=== PATIENT | male | born 1950 | race African-American/Black ===

== ENCOUNTER → 2017-03-14 | Outpatient (CLI) | payer MEDICARE ==
[2017-03-14 10:52] LABS: ABSOLUTE EOSINOPHILS # (AUTO) 0.1 10^3/uL (0.0-0.6); ABSOLUTE LYMPHOCYTES (AUTO) 1.7 10^3/uL (0.5-4.7); ABSOLUTE MONOCYTES (AUTO) 0.3 10^3/uL (0.1-1.4); ABSOLUTE NEUT (AUTO) 2.8 10^3/uL (1.7-8.2); BASOPHILS % (AUTO) 0.6 % (0-2); HEMATOCRIT 40.1 % (37.9-51.0); HEMOGLOBIN 12.8 g/dL (13.5-17.0); HGB HCT DIFFERENCE -1.7; LYMPHOCYTES % (AUTO) 34.7 % (13-45); MEAN CORPUSCULAR HEMOGLOBIN 31.1 pg (27.0-33.4); MEAN CORPUSCULAR HGB CONC 31.8 g/dL (32.0-36.0); MEAN CORPUSCULAR VOLUME 98 fl (80-97); MONOCYTES % (AUTO) 6.6 % (3-13); RED CELL DISTRIBUTION WIDTH 19.3 % (11.5-14.0); SEGMENTED NEUTROPHILS % (AUTO) 56.1 % (42-78)
== END ==
LOC: OD 09:24
PROVIDERS: ATTEND Radiology Radiation Oncology
DX: C32.1 Malignant neoplasm of supraglottis (principal); C77.0 Secondary and unspecified malignant neoplasm of lymph nodes of head, face and neck
CPT/HCPCS: 36415; 85025

== ENCOUNTER → 2017-03-25 | Outpatient (CLI) | payer MEDICARE ==
--- NOTE | 2017-03-26 17:06 | RADIOLOGY REPORT (SQ) ---
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 TECHNIQUE: Blood glucose level was verified. Above dose of FDG was injected intravenously. 2-D seg mented attenuation correction images were obtained from the base of the skull to the midthighs. Nonc ontrast CT images were obtained for attenuation correction and fusion with emission images. CT image s were performed without oral or intravenous contrast and are not sensitive for parenchymal lesions. A series of overlapping emission PET images were obtained. Images reviewed and manipulated at [facility] work station by the radiologist. Images stored on PACS. LIMITATIONS: None. FINDINGS: HEAD AND NECK: Patient is post laryngectomy in 2015 and left radical neck dissection at th e end of January 2017. There is soft tissue stranding along the left neck from recent surgery. On axial image 64, a 2.4 x 1.8 cm left supraclavicular lymph node is present with SUV 6.7. On axial image 68, a 1.1 x 1.0 cm lymph node is present, ventral to the medial 3rd of the clavicle. This has SUV 7.1. CHEST: No areas of abnormal metabolic activity in the chest. ABDOMEN AND PELVIS: No areas of abnormal metabolic activity in the abdomen or pelvis. Expected physi ologic activity is present in the genitourinary system and bowel. PROXIMAL LOWER EXTREMITIES: No areas of abnormal metabolic activity in the soft tissues of the lower extremities. BONES: No abnormal metabolic activity in the visualized skeleton. ADDITIONAL CT FINDINGS: Mild coronary artery calcifications. Ascending thoracic aorta 4 cm diameter. 3 to 4 mm intrarenal nonobstructive stone left upper pole kidney. I containing right inguinal fransisco ia. OTHER: There activity 1.9 SUV, aorta blood pool activity 1.4 SUV IMPRESSION: Metabolically active left supraclavicular and paraclavicular lymph nodes. TECHNICAL DOCUMENTATION: JOB ID: [id number]- All Rights Reserved
== END ==
LOC: RAD 21:27
PROVIDERS: ATTEND Radiology Radiation Oncology
DX: C32.1 Malignant neoplasm of supraglottis (principal); C77.0 Secondary and unspecified malignant neoplasm of lymph nodes of head, face and neck
CPT/HCPCS: 78815; A9552

== ENCOUNTER → 2017-05-24 | Outpatient (CLI) | payer MEDICARE ==
--- NOTE | 2017-05-24 17:49 | RADIOLOGY REPORT (SQ) ---
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 Reconstructed coronal and sagittal MPR images reviewed. All images stored on PACS. All CT scanners at this facility use dose modulation, iterative reconstruction, and/or weight based d osing when appropriate to reduce radiation dose to as low as reasonably achievable (ALARA). [facility]: Dose Right [facility]: CareDose [facility]: Dose Right [facility]: Teradose 4D [facility]: [employer] CONTRAST TYPE AND DOSE: 80 mL Isovue 370- low osmolar. RENAL FUNCTION: Creatinine 0.9 RADIATION DOSE: 15.1 . LIMITATIONS: None. FINDINGS: Patient is post left radical neck dissection and laryngectomy. There is a tracheostomy wi th an esophageal speech device present. There are multiple left next lymph nodes in the supraclavicular region, increased in size and number compared to PET-CT 03/25/2017. Index lymph nodes are as follows: Left supraclavicular 1.7 x 1.5 cm axial image 63 Left supraclavicular 2.8 x 2 cm axial image 80 An enlarged lymph node or tumor deposit is present ventral to the left mid 3rd clavicle on axial imag e 84, 2 x 2 cm in size. High in the left axilla, a 3.2 x 1.8 cm lymph node is present on axial image 93. Other axillary lymp h nodes are present, better demonstrated on the CT chest today. SKULL BASE: Intact. MAJOR SALIVARY GLANDS: No solid or cystic masses. No inflammatory changes. LYMPHADENOPATHY: As above MUCOSAL MASSES OR ASYMMETRY: No mucosal masses or asymmetry. LARYNX/CORDS: Post laryngectomy VASCULAR STRUCTURES: The major vessels are patent. LUNG APICES: Obstructive lung disease in the apices BONES: Intact. THYROID: Normal size. No masses. PARANASAL SINUSES: Clear. OTHER: No other significant finding. IMPRESSION: Increase in pathologic adenopathy in the left paraclavicular and axillary regions compar ed to prior PET-CT 03/25/2017 TECHNICAL DOCUMENTATION: JOB ID: [id number] Quality ID # [id number]: Final reports with documentation of one or more dose reduction techniques (e.g., Au tomated exposure control, adjustment of the mA and/or kV according to patient size, use of iterative reconstruction technique) 2010 [employer]- All Rights Reserved
--- NOTE | 2017-05-24 17:59 | RADIOLOGY REPORT (SQ) ---
EXAM DESCRIPTION: CT CHEST WITH COMPLETED DATE/TIME: 05/24/2017 1:59 pm REASON FOR STUDY: LEFT SUPRACLAVICAL LEFT AXILLARY - VISIBLE MASS/SWELLING C32.1 MALIGNANT NEOPLA SM OF SUPRAGLOTTIS C77.0 SEC AND UNSP MALIG NEOPLASM OF NODES OF HEAD, FACE AND COMPARISON: PET-CT 03/25/2017 CT angio chest 10/09/2009 CT soft tissue neck same day TECHNIQUE: CT scan of the chest performed using helical scanning technique with dynamic intravenous contrast injection. Images reviewed with lung, soft tissue and bone windows. Reconstructed coronal and sagittal MPR images reviewed. All images stored on PACS. All CT scanners at this facility use dose modulation, iterative reconstruction, and/or weight based d osing when appropriate to reduce radiation dose to as low as reasonably achievable (ALARA). [facility]: Dose Right [facility]: CareDose [facility]: Dose Right [facility]: Teradose 4D [facility]: [employer] CONTRAST TYPE AND DOSE: contrast/concentration: Isovue 370.00 mg/ml; Total Contrast Delivered: 80.0 ml; Total Saline Delivered: 40.0 ml RENAL FUNCTION: Creatinine 0.9 RADIATION DOSE: 15 mGy . LIMITATIONS: None. FINDINGS: LUNGS AND PLEURA: No opacities, nodules, masses. No pneumothorax. No effusions. Obstruct ioana lung disease HILAR AND MEDIASTINAL STRUCTURES: No identified masses or abnormal mediastinal nodes. HEART AND VASCULAR STRUCTURES: No aneurysm or dissection. No central pulmonary emboli. No pericardi al effusion. HARDWARE: None in the chest. UPPER ABDOMEN: No significant findings. Limited exam. THYROID AND OTHER SOFT TISSUES: Thyroid unremarkable. Caps multiple enlarged paraclavicular/supracla vicular lymph nodes are present. Index lesions are as follows: 1.7 x 1.4 cm axial image 2 3 x 2 cm axial image 6 2 x 2 cm axial image 7 Multiple enlarged axillary lymph nodes are present as follows: High left axilla 3 x 2 cm axial image 12, inferior left axilla 3.5 x 3 cm axial image 25 Inferior left axilla/deep to the latissimus muscle 2.4 x 2 cm axial image 31 BONES: No significant finding. OTHER: No other significant finding. IMPRESSION: Recurrent malignancy in the supraclavicular/ paraclavicular region on the left, and in t he left axilla. Disease has progressed since prior PET-CT 03/25/2017 TECHNICAL DOCUMENTATION: JOB ID: [id number] Quality ID # [id number]: Final reports with documentation of one or more dose reduction techniques (e.g., Au tomated exposure control, adjustment of the mA and/or kV according to patient size, use of iterative reconstruction technique) 2010 [employer]- All Rights Reserved
== END ==
LOC: RAD 12:57
PROVIDERS: ATTEND Radiology Radiation Oncology
DX: C32.1 Malignant neoplasm of supraglottis (principal); C77.0 Secondary and unspecified malignant neoplasm of lymph nodes of head, face and neck
CPT/HCPCS: 70491; 71260; 82565

== ENCOUNTER → 2017-06-17 | Outpatient (CLI) | payer MEDICARE ==
--- NOTE | 2017-06-19 15:10 | RADIOLOGY REPORT (SQ) ---
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 TECHNIQUE: Blood glucose level was verified. Above dose of FDG was injected intravenously. 2-D seg mented attenuation correction images were obtained from the base of the skull to the midthighs. Nonc ontrast CT images were obtained for attenuation correction and fusion with emission images. CT image s were performed without oral or intravenous contrast and are not sensitive for parenchymal lesions. A series of overlapping emission PET images were obtained. Images reviewed and manipulated at [facility] work station by the radiologist. Images stored on PACS. LIMITATIONS: None. FINDINGS: HEAD AND NECK: Post laryngectomy and left neck dissection. No hypermetabolic lesions over the head or neck today. CHEST: There is conglomerate adenopathy in the left supraclavicular region 4.5 x 3.2 cm in size with SUV 11.3. This represents disease progression compared to previous studies. A 3 x 2.1 cm hypermetabolic lymph node is present ventral to the mid 3rd left clavicle, with SUV 6.2 (was 2 x 2 cm in size on 05/24/2017). In the high left axilla, a 4.2 x 3 point cm hypermetabolic lymph node is present with SUV 9.6 (was 3. 2 x 1.8 cm on 05/24/2017). In the lower posterior left axilla, a conglomerate mass of adenopathy is present 5.6 x 7.6 cm in size , with SUV of 9.4 (was 3.5 x 3 cm on 05/24/2017). ABDOMEN AND PELVIS: Along mid descending colon, a 1 cm focus of increased metabolic activity is prese nt, with SUV of 10.6. This could be an inflamed diverticulum. Hypermetabolic polyp could not be exc luded. PROXIMAL LOWER EXTREMITIES: No areas of abnormal metabolic activity in the soft tissues of the lower extremities. BONES: No abnormal metabolic activity in the visualized skeleton. ADDITIONAL CT FINDINGS: Post laryngectomy and left radical neck dissection. The ascending aorta 4 cm in diameter. OTHER: Blood pool background SUV 1.5. Liver background SUV 2.1 IMPRESSION: Progression of disease in the left supraclavicular and paraclavicular region, and left a xilla TECHNICAL DOCUMENTATION: JOB ID: [id number] [employer]- All Rights Reserved
== END ==
LOC: RAD 18:20
PROVIDERS: ATTEND Internal Medicine
DX: C32.0 Malignant neoplasm of glottis (principal)
CPT/HCPCS: 78815; A9552

== ENCOUNTER 2017-06-25 08:13 | Day surgery (SDC) | payer MEDICARE ==
[2017-06-25 08:04] LABS: HEMATOCRIT 36.5 % (37.9-51.0); HEMOGLOBIN 12.2 g/dL (13.5-17.0); HGB HCT DIFFERENCE 0.1; MEAN CORPUSCULAR HEMOGLOBIN 30.2 pg (27.0-33.4); MEAN CORPUSCULAR HGB CONC 33.4 g/dL (32.0-36.0); MEAN CORPUSCULAR VOLUME 90 fl (80-97); RED BLOOD COUNT 4.04 10^6/uL (4.35-5.55); RED CELL DISTRIBUTION WIDTH 15.9 % (11.5-14.0); WHITE BLOOD COUNT 8.1 10^3/uL (4.0-10.5)
--- NOTE | 2017-06-25 08:11 | EKG REPORT ---
SEVERITY:- ABNORMAL ECG - SINUS TACHYCARDIA PROBABLE INFERIOR INFARCT, AGE INDETERMINATE : Confirmed by: Arden Castillo 25-Jun-2017 08:09:12
[~2017-06-25 08:13] MED LIST: CEFAZOLIN 1 GM/D5W RTU 1 GM/50 ML RTUPB IV PRN; DEXTROSE 5%-1/2 NORMAL SALINE 1,000 ML IV PRN
[2017-06-25 08:37] LABS: ANION GAP 16 (5-19); BLOOD UREA NITROGEN 15 mg/dL (7-20); CARBON DIOXIDE 28 mmol/L (22-30); CHLORIDE 99 mmol/L (98-107); CREATININE RESULT 1.07 mg/dL (0.52-1.25); GLUCOSE 124 mg/dL (75-110); POTASSIUM 4.9 mmol/L (3.6-5.0); SODIUM 142.8 mmol/L (137-145)
--- NOTE | 2017-06-25 08:54 | RADIOLOGY REPORT (SQ) ---
EXAM DESCRIPTION: CHEST PA/LATERAL COMPLETED DATE/TIME: 06/25/2017 8:01 am REASON FOR STUDY: PRE-OP COMPARISON: 2016. TECHNIQUE: Frontal and lateral radiographic views of the chest acquired. NUMBER OF VIEWS: Two view. LIMITATIONS: Limited lateral, overlying arm partially obscuring. FINDINGS: LUNGS AND PLEURA: No acute or suspicious opacities. Probable bullous changes with apical pleural thickening/ scar. Stable. MEDIASTINUM AND HILAR STRUCTURES: No masses or contour abnormalities. HEART AND VASCULAR STRUCTURES: Heart normal size. No evidence for failure. BONES: No acute findings. HARDWARE: None in the chest. OTHER: No other significant finding. IMPRESSION: Stable chest. No acute abnormality. TECHNICAL DOCUMENTATION: JOB ID: [id number] [employer]- All Rights Reserved
[2017-06-25 09:02] LABS: CALCIUM 15.6 mg/dL (8.4-10.2)
[2017-06-25] MEDS ORDERED: MIDAZOLAM 2 MG/2 ML INJ ONE (09:47)
[2017-06-25] MEDS ORDERED: LIDOCAINE 0.5% INJ-PF (5 MG/ML) 50 ML SDV ONE (09:47)
[2017-06-25] MEDS ORDERED: FENTANYL CITRATE INJ/PF 100 MCG/2 ML AMPUL ONE (09:47)
[2017-06-25] MEDS ORDERED: BACITRACIN INJ 50,000 UNIT VIAL ONE (09:47)
[2017-06-25] MEDS ORDERED: CEFAZOLIN 1 GM/D5W RTU 1 GM/50 ML RTUPB IV ONE (10:17)
--- NOTE | 2017-06-25 11:30 | PDOC DISCHARGE SUMMARY ---
Discharge Summary (SDC) - Discharge Final Diagnosis: Laryngeal cancer Date of Surgery: 06/25/17 Discharge Date: 06/25/17 Condition: Fair Treatment or Instructions: Discharge home [after recovery per ASU criteria]. Diet , [renal],as tolerated, when fully awake advance as tolerated. Activities within moderation encouraged. Follow up in my office by appointment in about [1 week]. Call for appointment. Leave wounds [covered], [keep clean and dry, until office visit in 1 week]. Hold of on school/work [until evaluation in office]. Meds per med rec. May shower [in 48 hrs], [try to keep operated area as dry as possible]. Referrals: LALY EMANUEL MD [Primary Care Provider] - Discharge Diet: As Tolerated Respiratory Treatments at Home: Deep Breathing/Coughing Discharge Activity: Activity As Tolerated Report the Following to Your Physician Immediately: Shortness of Breath, Unusual Bleeding
--- NOTE | 2017-06-25 11:33 | Operative Report ---
Operative Report DATE OF SURGERY: 06/25/17 PREOPERATIVE DIAGNOSIS: Laryngeal cancer POSTOPERATIVE DIAGNOSIS: Laryngeal cancer OPERATION: 1. Ultrasound evaluation of the right internal jugular vein. 2. Insertion of Port-A-Cath via real-time access in the right internal jugular vein. 3. Angiogram and interpretation. SURGEON: FAVIO FIGUEROA CYTOLOGIST: None ANESTHESIA: LMAC TISSUE REMOVED OR ALTERED: Not applicable. COMPLICATIONS: None ESTIMATED BLOOD LOSS: 5 mL. INTRAOPERATIVE FINDINGS: Of a satisfactory right internal jugular vein to support catheter. Good catheter position with the tip in the superior vena cava. Smooth flow of contrast through the catheter, right atrium and ventricle noted. Easy egress of blood and ingress of heparinized solution. PROCEDURE: After obtaining informed consent, the patient was taken to the [operating room] and positioned supine. The [right] neck and chest were prepared with chlorhexidine and draped out with sterile linen. After the " universal timeout ", in which it was verified that the patient continued to receive antibiotic, the procedure commenced. Draping was complicated by the presence of a permanent tracheostomy. This is really well isolated including the use of Ioban drape. A steriley sheathed ultrasound probe was used to evaluate the [right] internal jugular vein. Local anesthesia was infiltrated adjacent to the probe. Access into the [right] internal jugular vein was obtained using a micropuncture needle, followed by micropuncture wire and then a micropuncture catheter. This was followed by introduction of a 0.035 guidewire the tip of which was placed down into the inferior vena cava . The port sites was marked , locally anesthetized and incision made. Dissection now proceeded to the deep subcutaneous subcutaneous tissues so that a pocket for the port was made. Meticulous hemostasis was secured and the catheter was tunneled between the 2 incisions. Proximally, the catheter was now positioned using a peel-away sheath. Distally the catheter was tailored to an appropriate length and then mated to the port using the contained fixating device. The port was now placed in the pocket and the catheter optimally positioned. The port was accessed with a Diaz needle and an angiogram done under digital subtraction. The findings as dictated. With adequate and satisfactory positioning, both lumens of the chamber were irrigated with heparinized solution. The wounds were now closed using interrupted 3-0 PDS to the subcutaneous tissues and a continuous subcuticular suture of 4-0 Monocryl to the skin. These are reinforced with Steri-Strips over benzoin and then dressings applied. Copies of the dictated operative report for Dr. Favio Sawant MD.
[2017-06-25 12:27] VITALS: BP 133/85
--- NOTE | 2017-06-25 16:12 | RADIOLOGY REPORT (SQ) ---
EXAM DESCRIPTION: PORTACATH INSERTION COMPLETED DATE/TIME: 06/25/2017 1:10 pm REASON FOR STUDY: NEED FOR VASCULAR ACCESS I10 ESSENTIAL (PRIMARY) HYPERTENSION COMPARISON: Chest films 06/25/2017 FLUOROSCOPY TIME: 0.8 minutes 4 series of digital images saved to PACS. TECHNIQUE: Intra-operative images acquired during surgical procedure to evaluate progress. NUMBER OF IMAGES: Cine fluoroscopic images. LIMITATIONS: None. FINDINGS: Intra procedural imaging and fluoro during placement of a right-sided permanent central li ne by Dr. Sawant IMPRESSION: Intra procedural imaging and fluoro COMMENT: Quality ID 145: Final reports for procedures using fluoroscopy that document radiation exp osure indices, or exposure time and number of fluorographic images (if radiation exposure indices are not available) Please consult full operative report of the attending physician for description of the procedure. TECHNICAL DOCUMENTATION: JOB ID: [id number] [employer]- All Rights Reserved
== END 2017-06-25 12:20 | disposition home or self-care (01) ==
LOC: CCL 08:13
PROVIDERS: ATTEND Surgery
PROC: 05HM33Z Insertion of Infusion Device into Right Internal Jugular Vein, Percutaneous Approach (ICD-10-PCS; principal; 2017-06-25)
DX: C32.9 Malignant neoplasm of larynx, unspecified (principal); I10 Essential (primary) hypertension; R59.1 Generalized enlarged lymph nodes; F17.210 Nicotine dependence, cigarettes, uncomplicated; Z79.899 Other long term (current) drug therapy
CPT/HCPCS: 93005; 36415; 85027; 80048; 36561; 76937; 77001; 71020; 93010; C1788; Q9967; J2250; J3490 ×2; J0690; J3010; J1644

== ENCOUNTER 2017-06-27 08:52 | Outpatient (CLI) | payer MEDICARE ==
[~2017-06-27 08:52] MED LIST changes: +ACETAMINOPHEN 325 MG TABLET PO PRN; +CARBOPLATIN IV PRN; -CEFAZOLIN 1 GM/D5W RTU 1 GM/50 ML RTUPB IV PRN; +CETUXIMAB IV PRN; +CONTAINER EMPTY IV PRN; +DENOSUMAB 120 MG in SYRINGE, DISPOSABLE, 1 EACH SUBCUT PRN; -DEXTROSE 5%-1/2 NORMAL SALINE 1,000 ML IV PRN; +DIPHENHYDRAMINE HCL 50 MG/ML VIAL IV PRN; +FAMOTIDINE/PF 20 MG in NORMAL SALINE 50 ML IV PRN; +NORMAL SALINE 250 ML IV PRN; +NORMAL SALINE IV PRN; +ONDANSETRON HCL/PF 16 MG, DEXAMETHASONE SOD PHOSPHATE 10 MG in NORMAL SALINE 50 ML IV PRN; +PACLITAXEL SEMI SYNTHETIC IV PRN
[2017-06-27 10:37] VITALS: BP 158/84
== END 2017-06-27 15:45 | disposition home or self-care (01) ==
LOC: II 08:52 → 5TH 08:57 → II 15:45
PROVIDERS: ATTEND Internal Medicine
PROC: 3E0130M Introduction of Antineoplastic, Monoclonal Antibody, into Subcutaneous Tissue, Percutaneous Approach (ICD-10-PCS; principal; 2017-06-27)
PROC: 3E0430M Introduction of Antineoplastic, Monoclonal Antibody, into Central Vein, Percutaneous Approach (ICD-10-PCS; 2017-06-27)
PROC: 3E04305 Introduction of Other Antineoplastic into Central Vein, Percutaneous Approach (ICD-10-PCS; 2017-06-27)
PROC: 3E043GC Introduction of Other Therapeutic Substance into Central Vein, Percutaneous Approach (ICD-10-PCS; 2017-06-27)
DX: Z51.11 Encounter for antineoplastic chemotherapy (principal); C32.0 Malignant neoplasm of glottis; G89.3 Neoplasm related pain (acute) (chronic); Z90.02 Acquired absence of larynx
CPT/HCPCS: 96413; 96415; 96367; 96372; 96375; A9270 ×2; J1200; J9045; J2405; J7050; J3490; J9267; S0028; J1100; J0897; J9055; 96417

== ENCOUNTER 2017-07-04 08:41 | Outpatient (CLI) | payer MEDICARE ==
[~2017-07-04 08:41] MED LIST changes: -ACETAMINOPHEN 325 MG TABLET PO PRN; -DENOSUMAB 120 MG in SYRINGE, DISPOSABLE, 1 EACH SUBCUT PRN
[2017-07-04 14:06] VITALS: BP 142/68
== END 2017-07-04 15:20 | disposition home or self-care (01) ==
LOC: II 08:41 → 5TH 08:46 → II 15:20
PROVIDERS: ATTEND Internal Medicine
PROC: 3E04305 Introduction of Other Antineoplastic into Central Vein, Percutaneous Approach (ICD-10-PCS; principal; 2017-07-04)
PROC: 3E0430M Introduction of Antineoplastic, Monoclonal Antibody, into Central Vein, Percutaneous Approach (ICD-10-PCS; 2017-07-04)
PROC: 3E043GC Introduction of Other Therapeutic Substance into Central Vein, Percutaneous Approach (ICD-10-PCS; 2017-07-04)
DX: Z51.11 Encounter for antineoplastic chemotherapy (principal); C32.0 Malignant neoplasm of glottis; G89.3 Neoplasm related pain (acute) (chronic)
CPT/HCPCS: 96413; 96415; 96367; 96374; 96417; 96523; J1200; J9045; A9270; J2405; J7050; J9267; S0028; J1100; J9055; 96375; J3490

== ENCOUNTER 2017-07-25 08:52 | Outpatient (CLI) | payer MEDICARE ==
[~2017-07-25 08:52] MED LIST changes: +ACETAMINOPHEN 325 MG TABLET PO PRN; +DENOSUMAB 120 MG in SYRINGE, DISPOSABLE, 1 EACH SUBCUT PRN
[2017-07-25 12:25] VITALS: BP 138/70
== END 2017-07-25 16:15 | disposition home or self-care (01) ==
LOC: II 08:52 → 5TH 08:56 → II 16:15
PROVIDERS: ATTEND Internal Medicine
PROC: 3E0430M Introduction of Antineoplastic, Monoclonal Antibody, into Central Vein, Percutaneous Approach (ICD-10-PCS; principal; 2017-07-25)
PROC: 3E04305 Introduction of Other Antineoplastic into Central Vein, Percutaneous Approach (ICD-10-PCS; 2017-07-25)
PROC: 3E043GC Introduction of Other Therapeutic Substance into Central Vein, Percutaneous Approach (ICD-10-PCS; 2017-07-25)
PROC: 3E0130M Introduction of Antineoplastic, Monoclonal Antibody, into Subcutaneous Tissue, Percutaneous Approach (ICD-10-PCS; 2017-07-25)
DX: Z51.11 Encounter for antineoplastic chemotherapy (principal); C32.0 Malignant neoplasm of glottis; G89.3 Neoplasm related pain (acute) (chronic); C41.9 Malignant neoplasm of bone and articular cartilage, unspecified
CPT/HCPCS: 96401; 96411; 96413; 96415; 96367; 96374; 96417; 96523; A9270 ×2; J1200; J9045; J2405; J7050; J3490; J9267; S0028; J1100; J0897; J9055; 96375

== ENCOUNTER 2017-08-01 09:01 | Outpatient (CLI) | payer MEDICARE ==
[~2017-08-01 09:01] MED LIST changes: -ACETAMINOPHEN 325 MG TABLET PO PRN; -DENOSUMAB 120 MG in SYRINGE, DISPOSABLE, 1 EACH SUBCUT PRN
[2017-08-01 09:34] VITALS: BP 127/65
[2017-08-01 09:38] LABS: ABSOLUTE EOSINOPHILS # (AUTO) 0.1 10^3/uL (0.0-0.6); ABSOLUTE LYMPHOCYTES (AUTO) 1.2 10^3/uL (0.5-4.7); ABSOLUTE MONOCYTES (AUTO) 0.2 10^3/uL (0.1-1.4); ABSOLUTE NEUT (AUTO) 1.5 10^3/uL (1.7-8.2); BASOPHILS % (AUTO) 0.9 % (0-2); EOSINOPHILS % (AUTO) 4.6 % (0-6); HEMATOCRIT 31.1 % (37.9-51.0); HEMOGLOBIN 10.2 g/dL (13.5-17.0); HGB HCT DIFFERENCE -0.5; LYMPHOCYTES % (AUTO) 39.6 % (13-45); MEAN CORPUSCULAR HEMOGLOBIN 31.1 pg (27.0-33.4); MEAN CORPUSCULAR HGB CONC 32.7 g/dL (32.0-36.0); MEAN CORPUSCULAR VOLUME 95 fl (80-97); MONOCYTES % (AUTO) 5.9 % (3-13); RED BLOOD COUNT 3.27 10^6/uL (4.35-5.55); WHITE BLOOD COUNT 3.1 10^3/uL (4.0-10.5)
== END 2017-08-01 13:38 | disposition home or self-care (01) ==
LOC: II 09:01 → 5TH 09:03 → II 13:38
PROVIDERS: ATTEND Internal Medicine
PROC: 3E0430M Introduction of Antineoplastic, Monoclonal Antibody, into Central Vein, Percutaneous Approach (ICD-10-PCS; principal; 2017-08-01)
PROC: 3E04305 Introduction of Other Antineoplastic into Central Vein, Percutaneous Approach (ICD-10-PCS; 2017-08-01)
PROC: 3E043GC Introduction of Other Therapeutic Substance into Central Vein, Percutaneous Approach (ICD-10-PCS; 2017-08-01)
DX: Z51.11 Encounter for antineoplastic chemotherapy (principal); C32.0 Malignant neoplasm of glottis; G89.3 Neoplasm related pain (acute) (chronic)
CPT/HCPCS: 36415; 85025; 96413; 96415; 96367; 96375; J1200; J9045; A9270; J2405; J7050; J9267; S0028; J1100; J9055; 96417; J3490

== ENCOUNTER 2017-08-08 08:36 | Outpatient (CLI) | payer MEDICARE ==
[2017-08-08 09:44] VITALS: BP 102/51
== END 2017-08-08 14:39 | disposition home or self-care (01) ==
LOC: II 08:36 → 5TH 08:37 → II 14:39
PROVIDERS: ATTEND Internal Medicine
PROC: 3E04305 Introduction of Other Antineoplastic into Central Vein, Percutaneous Approach (ICD-10-PCS; principal; 2017-08-08)
PROC: 3E0430M Introduction of Antineoplastic, Monoclonal Antibody, into Central Vein, Percutaneous Approach (ICD-10-PCS; 2017-08-08)
PROC: 3E043GC Introduction of Other Therapeutic Substance into Central Vein, Percutaneous Approach (ICD-10-PCS; 2017-08-08)
DX: Z51.11 Encounter for antineoplastic chemotherapy (principal); C32.0 Malignant neoplasm of glottis
CPT/HCPCS: 96413; 96367; 96375; 96360; 96361; 96417; J1200; A9270; J9045; J2405; J7050; J9267; S0028; J1100; J9055; 96372; 96374; 96415; 96523; J3490

== ENCOUNTER 2017-08-22 10:03 | Outpatient (CLI) | payer MEDICARE ==
[~2017-08-22 10:03] MED LIST changes: +ACETAMINOPHEN 325 MG TABLET PO PRN; +DENOSUMAB 120 MG in SYRINGE, DISPOSABLE, 1 EACH SUBCUT PRN
[2017-08-22 10:44] VITALS: BP 143/85
== END 2017-08-22 13:36 | disposition home or self-care (01) ==
LOC: II 10:03 → 5TH 10:26 → II 13:36
PROVIDERS: ATTEND Internal Medicine
PROC: 3E0430M Introduction of Antineoplastic, Monoclonal Antibody, into Central Vein, Percutaneous Approach (ICD-10-PCS; principal; 2017-08-22)
PROC: 3E04305 Introduction of Other Antineoplastic into Central Vein, Percutaneous Approach (ICD-10-PCS; 2017-08-22)
PROC: 3E043GC Introduction of Other Therapeutic Substance into Central Vein, Percutaneous Approach (ICD-10-PCS; 2017-08-22)
PROC: 3E0130M Introduction of Antineoplastic, Monoclonal Antibody, into Subcutaneous Tissue, Percutaneous Approach (ICD-10-PCS; 2017-08-22)
DX: Z51.11 Encounter for antineoplastic chemotherapy (principal); C32.0 Malignant neoplasm of glottis; C41.9 Malignant neoplasm of bone and articular cartilage, unspecified; G89.3 Neoplasm related pain (acute) (chronic)
CPT/HCPCS: 96401; 96413; 96415; 96367; 96375; A9270 ×2; J1200; J9045; J2405; J7050; J3490; J9267; S0028; J1100; J0897; J9055; 96417

== ENCOUNTER 2017-08-29 09:06 | Outpatient (CLI) | payer MEDICARE ==
[2017-08-29 09:34] VITALS: BP 141/83
[2017-08-29] MEDS ORDERED: ONDANSETRON HCL/PF 16 MG, DEXAMETHASONE SOD PHOSPHATE 10 MG in NORMAL SALINE 50 ML IV PRN (09:36)
[2017-08-29] MEDS ORDERED: FAMOTIDINE/PF 20 MG in NORMAL SALINE 50 ML IV PRN (09:37)
[2017-08-29] MEDS ORDERED: NORMAL SALINE 250 ML IV PRN (09:38)
[2017-08-29] MEDS ORDERED: NORMAL SALINE IV PRN ×2 (09:41→09:48)
[2017-08-29] MEDS ORDERED: PACLITAXEL SEMI SYNTHETIC IV PRN (09:41)
[2017-08-29] MEDS ORDERED: DIPHENHYDRAMINE HCL 50 MG/ML VIAL IV PRN (09:43)
[2017-08-29] MEDS ORDERED: CETUXIMAB IV PRN (09:45)
[2017-08-29] MEDS ORDERED: CONTAINER EMPTY IV PRN (09:45)
[2017-08-29] MEDS ORDERED: CARBOPLATIN IV PRN (09:48)
[2017-08-29 10:12] LABS: ALANINE AMINOTRANSFERASE 21 U/L (21-72); ALBUMIN 4.1 g/dL (3.5-5.0); ALKALINE PHOSPHATASE 98 U/L (38-126); ANION GAP 16 (5-19); ASPARTATE AMINO TRANSFERASE 15 U/L (17-59); BILIRUBIN,DIRECT 0.2 mg/dL (0.0-0.4); BILIRUBIN,TOTAL 0.4 mg/dL (0.2-1.3); BLOOD UREA NITROGEN 7 mg/dL (7-20); CALCIUM 8.7 mg/dL (8.4-10.2); CARBON DIOXIDE 23 mmol/L (22-30); CHLORIDE 104 mmol/L (98-107); GLUCOSE 86 mg/dL (75-110); POTASSIUM 4.1 mmol/L (3.6-5.0); SODIUM 142.6 mmol/L (137-145); TOTAL PROTEIN 7.5 g/dL (6.3-8.2)
[2017-08-29 10:40] LABS: ABSOLUTE EOSINOPHILS # (AUTO) 0.2 10^3/uL (0.0-0.6); ABSOLUTE LYMPHOCYTES (AUTO) 0.9 10^3/uL (0.5-4.7); ABSOLUTE MONOCYTES (AUTO) 0.3 10^3/uL (0.1-1.4); ABSOLUTE NEUT (AUTO) 2.6 10^3/uL (1.7-8.2); BASOPHILS % (AUTO) 1.1 % (0-2); HEMATOCRIT 34.3 % (37.9-51.0); HEMOGLOBIN 11.3 g/dL (13.5-17.0); LYMPHOCYTES % (AUTO) 21.7 % (13-45); MEAN CORPUSCULAR HEMOGLOBIN 32.9 pg (27.0-33.4); MEAN CORPUSCULAR HGB CONC 32.9 g/dL (32.0-36.0); MONOCYTES % (AUTO) 7.6 % (3-13); PLATELET COUNT 298 10^3/uL (150-450); RED BLOOD COUNT 3.43 10^6/uL (4.35-5.55); RED CELL DISTRIBUTION WIDTH 21.5 % (11.5-14.0); SEGMENTED NEUTROPHILS % (AUTO) 64.6 % (42-78); TOTAL CELLS COUNTED % (AUTO) 100 %; WHITE BLOOD COUNT 4.1 10^3/uL (4.0-10.5)
[2017-08-29 10:41] LABS: MEAN CORPUSCULAR VOLUME 100 fl (80-97)
== END 2017-08-29 15:19 | disposition home or self-care (01) ==
LOC: II 09:06 → 5TH 09:13 → II 15:19
PROVIDERS: ATTEND Internal Medicine
PROC: 3E0430M Introduction of Antineoplastic, Monoclonal Antibody, into Central Vein, Percutaneous Approach (ICD-10-PCS; principal; 2017-08-29)
PROC: 3E04305 Introduction of Other Antineoplastic into Central Vein, Percutaneous Approach (ICD-10-PCS; 2017-08-29)
PROC: 3E043GC Introduction of Other Therapeutic Substance into Central Vein, Percutaneous Approach (ICD-10-PCS; 2017-08-29)
DX: Z51.11 Encounter for antineoplastic chemotherapy (principal); C32.0 Malignant neoplasm of glottis; C41.9 Malignant neoplasm of bone and articular cartilage, unspecified
CPT/HCPCS: 36415; 85025; 80053; 96413; 96415; 96367; 96374; 96360; 96417; 96523; J1200; J9045; A9270; J2405; J7050; J9267; S0028; J1100; J9055; 96361; 96375; J3490

== ENCOUNTER → 2017-09-11 | Outpatient (CLI) | payer MEDICARE ==
--- NOTE | 2017-09-11 08:59 | RADIOLOGY REPORT (SQ) ---
EXAM DESCRIPTION: CT SOFT TISSUE NECK WITH COMPLETED DATE/TIME: 09/11/2017 8:23 am REASON FOR STUDY: MALIGNANT NEOPLASM OF GLOTTIS (C32.0) C32.0 MALIGNANT NEOPLASM OF GLOTTIS COMPARISON: 05/24/2017. TECHNIQUE: Post IV contrasted scanning from skull base through lung apices with review of bone, soft tissue and lung windows. Reconstructed coronal and sagittal MPR images reviewed. All images stored on PACS. All CT scanners at this facility use dose modulation, iterative reconstruction, and/or weight based d osing when appropriate to reduce radiation dose to as low as reasonably achievable (ALARA). [facility]: Dose Right [facility]: CareDose [facility]: Dose Right [facility]: Teradose 4D [facility]: [employer] CONTRAST TYPE AND DOSE: Not provided. RENAL FUNCTION: Creatinine 0.7 RADIATION DOSE: . LIMITATIONS: None. FINDINGS: SKULL BASE: Intact. MAJOR SALIVARY GLANDS: No solid or cystic masses. No inflammatory changes. LYMPHADENOPATHY: Less conspicuous left supraclavicular nodes, up to 1.4 cm short axis. MUCOSAL MASSES OR ASYMMETRY: No mucosal masses or asymmetry. LARYNX/CORDS: Status post laryngectomy and left neck dissection. No gross regional mass. VASCULAR STRUCTURES: Thrombus in the right internal jugular above the level of the port catheter. LUNG APICES: Please see separately dictated chest CT from same date. BONES: Intact. THYROID: Normal size. No masses. PARANASAL SINUSES: Clear. OTHER: No other significant finding. IMPRESSION: 1. New thrombus distends the right internal jugular vein above the level of the patient 's port catheter. 2. Improved left supraclavicular adenopathy. 3. Stable postoperative changes. TECHNICAL DOCUMENTATION: JOB ID: [id number] Quality ID # 436: Final reports with documentation of one or more dose reduction techniques (e.g., Au tomated exposure control, adjustment of the mA and/or kV according to patient size, use of iterative reconstruction technique) 2010 [employer]- All Rights Reserved
--- NOTE | 2017-09-11 09:06 | RADIOLOGY REPORT (SQ) ---
EXAM DESCRIPTION: CT CHEST WITH COMPLETED DATE/TIME: 09/11/2017 8:23 am REASON FOR STUDY: MALIGNANT NEOPLASM OF GLOTTIS (C32.0) C32.0 MALIGNANT NEOPLASM OF GLOTTIS COMPARISON: 05/24/2017 TECHNIQUE: CT scan of the chest performed using helical scanning technique with dynamic intravenous contrast injection. Images reviewed with lung, soft tissue and bone windows. Reconstructed coronal and sagittal MPR images reviewed. All images stored on PACS. All CT scanners at this facility use dose modulation, iterative reconstruction, and/or weight based d osing when appropriate to reduce radiation dose to as low as reasonably achievable (ALARA). [facility]: Dose Right [facility]: CareDose [facility]: Dose Right [facility]: Teradose 4D [facility]: [employer] CONTRAST TYPE AND DOSE: contrast/concentration: Isovue 370.00 mg/ml; Total Contrast Delivered: 80.0 ml; Total Saline Delivered: 55.0 ml RENAL FUNCTION: BUN 7 creatinine 0.7 RADIATION DOSE: . LIMITATIONS: None. FINDINGS: LUNGS AND PLEURA: No opacities, nodules, masses. No pneumothorax. No effusions. HILAR AND MEDIASTINAL STRUCTURES: No identified masses or abnormal nodes. HEART AND VASCULAR STRUCTURES: No aneurysm or dissection. No central pulmonary emboli. No pericardi al effusion. HARDWARE: None in the chest. UPPER ABDOMEN: No significant findings. Limited exam. THYROID AND OTHER SOFT TISSUES: Interval improvement in the left axillary and supraclavicular adenopa thy. Supraclavicular node previously 3.0 x 2.0 cm, now 1.5 x 1.5 cm. Axillary nodes have decreased in size. Residual 5.0 x 2.3 cm inferior axillary fluid density lesion measuring less than 10 HU. BONES: No significant finding. OTHER: No other significant finding. IMPRESSION: Favorable response to therapy. TECHNICAL DOCUMENTATION: JOB ID: [id number] Quality ID # 436: Final reports with documentation of one or more dose reduction techniques (e.g., Au tomated exposure control, adjustment of the mA and/or kV according to patient size, use of iterative reconstruction technique) 2010 [employer]- All Rights Reserved
== END ==
LOC: RAD 07:26
PROVIDERS: ATTEND Internal Medicine
DX: C32.0 Malignant neoplasm of glottis (principal)
CPT/HCPCS: 70491; 71260

== ENCOUNTER 2017-12-05 08:45 | Outpatient (CLI) | payer MEDICARE ==
[~2017-12-05 08:45] MED LIST changes: +CARBOPLATIN 250 MG in NORMAL SALINE 250 ML IV PRN; -CARBOPLATIN IV PRN; -DENOSUMAB 120 MG in SYRINGE, DISPOSABLE, 1 EACH SUBCUT PRN; +DEXAMETHASONE 4 MG TABLET PO PRN; -ONDANSETRON HCL/PF 16 MG, DEXAMETHASONE SOD PHOSPHATE 10 MG in NORMAL SALINE 50 ML IV PRN; +PALONOSETRON 0.25 MG/5 ML SDV IV PRN
[2017-12-05 09:40] VITALS: BP 134/79
[2017-12-05 09:50] LABS: ABSOLUTE BASOPHILS # (AUTO) 0.1 10^3/uL (0.0-0.2); ABSOLUTE EOSINOPHILS # (AUTO) 0.1 10^3/uL (0.0-0.6); ABSOLUTE LYMPHOCYTES (AUTO) 1.4 10^3/uL (0.5-4.7); ABSOLUTE MONOCYTES (AUTO) 0.4 10^3/uL (0.1-1.4); ABSOLUTE NEUT (AUTO) 2.1 10^3/uL (1.7-8.2); BASOPHILS % (AUTO) 1.3 % (0-2); EOSINOPHILS % (AUTO) 2.5 % (0-6); HEMATOCRIT 31.9 % (37.9-51.0); HEMOGLOBIN 10.4 g/dL (13.5-17.0); LYMPHOCYTES % (AUTO) 34.3 % (13-45); MEAN CORPUSCULAR HEMOGLOBIN 32.6 pg (27.0-33.4); MEAN CORPUSCULAR HGB CONC 32.6 g/dL (32.0-36.0); MEAN CORPUSCULAR VOLUME 100 fl (80-97); MONOCYTES % (AUTO) 10.8 % (3-13); PLATELET COUNT 265 10^3/uL (150-450); RED BLOOD COUNT 3.18 10^6/uL (4.35-5.55); RED CELL DISTRIBUTION WIDTH 18.9 % (11.5-14.0); SEGMENTED NEUTROPHILS % (AUTO) 51.1 % (42-78); TOTAL CELLS COUNTED % (AUTO) 100 %
[2017-12-05 10:14] LABS: ALANINE AMINOTRANSFERASE 24 U/L (21-72); ALBUMIN 4.2 g/dL (3.5-5.0); ALKALINE PHOSPHATASE 57 U/L (38-126); ANION GAP 12 (5-19); ASPARTATE AMINO TRANSFERASE 17 U/L (17-59); BILIRUBIN,DIRECT 0.5 mg/dL (0.0-0.4); BILIRUBIN,TOTAL 0.5 mg/dL (0.2-1.3); BLOOD UREA NITROGEN 9 mg/dL (7-20); CARBON DIOXIDE 28 mmol/L (22-30); CHLORIDE 103 mmol/L (98-107); GLUCOSE 109 mg/dL (75-110); POTASSIUM 4.2 mmol/L (3.6-5.0); SODIUM 142.9 mmol/L (137-145); TOTAL PROTEIN 7.4 g/dL (6.3-8.2)
[2017-12-05] MEDS: MAGNESIUM SULFATE 1 GM/D5W 100 ML IV SCH ×2 (10:53→11:38)
== END 2017-12-05 15:15 | disposition home or self-care (01) ==
LOC: II 08:45 → 5TH 08:49 → II 15:15
PROVIDERS: ATTEND Internal Medicine
PROC: 3E0430M Introduction of Antineoplastic, Monoclonal Antibody, into Central Vein, Percutaneous Approach (ICD-10-PCS; principal; 2017-12-05)
PROC: 3E04305 Introduction of Other Antineoplastic into Central Vein, Percutaneous Approach (ICD-10-PCS; 2017-12-05)
PROC: 3E043GC Introduction of Other Therapeutic Substance into Central Vein, Percutaneous Approach (ICD-10-PCS; 2017-12-05)
DX: Z51.11 Encounter for antineoplastic chemotherapy (principal); C32.0 Malignant neoplasm of glottis; C41.9 Malignant neoplasm of bone and articular cartilage, unspecified
CPT/HCPCS: 36415; 83735; 85025; 80053; 96413; 96367; 96375; 96361; 96417; A9270 ×3; J1200; J9045; J3475; J7050; J9267; S0028; J9055 ×2; J2469; 96360; 96365; 96366; 96374; 96415; J3490

== ENCOUNTER 2017-12-19 10:08 | Outpatient (CLI) | payer MEDICARE ==
[~2017-12-19 10:08] MED LIST changes: -DEXAMETHASONE 4 MG TABLET PO PRN; +DEXAMETHASONE SOD PHOSPHATE 10 MG in NORMAL SALINE 50 ML IV PRN
[2017-12-19] MEDS ORDERED: CETUXIMAB IV PRN (10:28)
[2017-12-19] MEDS ORDERED: CONTAINER EMPTY IV PRN (10:28)
[2017-12-19 10:38] VITALS: BP 133/78
[2017-12-19] MEDS: DENOSUMAB 120 MG in SYRINGE, DISPOSABLE, 1 EACH SUBCUT PRN ×2 (12:17→13:22)
== END 2017-12-19 14:50 | disposition home or self-care (01) ==
LOC: II 10:08 → 5TH 10:11 → II 14:50
PROVIDERS: ATTEND Internal Medicine
PROC: 3E0130M Introduction of Antineoplastic, Monoclonal Antibody, into Subcutaneous Tissue, Percutaneous Approach (ICD-10-PCS; principal; 2017-12-19)
PROC: 3E0330M Introduction of Antineoplastic, Monoclonal Antibody, into Peripheral Vein, Percutaneous Approach (ICD-10-PCS; 2017-12-19)
PROC: 3E033GC Introduction of Other Therapeutic Substance into Peripheral Vein, Percutaneous Approach (ICD-10-PCS; 2017-12-19)
DX: Z51.11 Encounter for antineoplastic chemotherapy (principal); C32.0 Malignant neoplasm of glottis; C41.9 Malignant neoplasm of bone and articular cartilage, unspecified
CPT/HCPCS: 96413; 96415; 96372; A9270 ×2; J1200; J3490; J0897; J9055; 96375; J1100; J2469; J7050; J9045; J9267; S0028

== ENCOUNTER 2018-01-02 09:08 | Outpatient (CLI) | payer MEDICARE ==
[~2018-01-02 09:08] MED LIST changes: -CARBOPLATIN 250 MG in NORMAL SALINE 250 ML IV PRN; -DEXAMETHASONE SOD PHOSPHATE 10 MG in NORMAL SALINE 50 ML IV PRN; -FAMOTIDINE/PF 20 MG in NORMAL SALINE 50 ML IV PRN; -NORMAL SALINE IV PRN; -PACLITAXEL SEMI SYNTHETIC IV PRN; -PALONOSETRON 0.25 MG/5 ML SDV IV PRN
[2018-01-02 09:32] VITALS: BP 135/76
== END 2018-01-02 13:37 | disposition home or self-care (01) ==
LOC: II 09:08 → 5TH 09:10 → II 13:37
PROVIDERS: ATTEND Internal Medicine Hematology & Oncology
PROC: 3E0430M Introduction of Antineoplastic, Monoclonal Antibody, into Central Vein, Percutaneous Approach (ICD-10-PCS; principal; 2018-01-02)
PROC: 3E043GC Introduction of Other Therapeutic Substance into Central Vein, Percutaneous Approach (ICD-10-PCS; 2018-01-02)
DX: Z51.11 Encounter for antineoplastic chemotherapy (principal); C32.0 Malignant neoplasm of glottis; C41.9 Malignant neoplasm of bone and articular cartilage, unspecified
CPT/HCPCS: 96413; 96415; 96374; 96375; 96360; A9270 ×2; J1200; J9055; 96361; J3490

== ENCOUNTER 2018-01-16 10:09 | Outpatient (CLI) | payer MEDICARE ==
[~2018-01-16 10:09] MED LIST changes: +DENOSUMAB 120 MG in SYRINGE, DISPOSABLE, 1 EACH SUBCUT PRN; +DENOSUMAB INJ/PF 120 MG/1.7 ML SDV SUBCUT PRN
[2018-01-16 11:59] VITALS: BP 133/70
== END 2018-01-16 13:19 | disposition home or self-care (01) ==
LOC: II 10:09 → 5TH 10:11 → II 13:19
PROVIDERS: ATTEND Internal Medicine
PROC: 3E0130M Introduction of Antineoplastic, Monoclonal Antibody, into Subcutaneous Tissue, Percutaneous Approach (ICD-10-PCS; principal; 2018-01-16)
PROC: 3E0430M Introduction of Antineoplastic, Monoclonal Antibody, into Central Vein, Percutaneous Approach (ICD-10-PCS; 2018-01-16)
PROC: 3E043GC Introduction of Other Therapeutic Substance into Central Vein, Percutaneous Approach (ICD-10-PCS; 2018-01-16)
DX: Z51.11 Encounter for antineoplastic chemotherapy (principal); C32.0 Malignant neoplasm of glottis; C41.9 Malignant neoplasm of bone and articular cartilage, unspecified
CPT/HCPCS: 96401; 96413; 96415; 96374; 96375; A9270 ×2; J1200; J3490; J0897; J9055 ×2

== ENCOUNTER 2018-01-17 08:50 | Outpatient (CLI) | payer MEDICARE ==
[2018-01-17] MEDS ORDERED: NORMAL SALINE 250 ML IV PRN (08:54)
[2018-01-17] MEDS ORDERED: MAGNESIUM SULFATE 4 GM/D5W 100 ML IV PRN (08:55)
[2018-01-17 09:29] VITALS: BP 140/78
== END 2018-01-17 12:45 | disposition home or self-care (01) ==
LOC: II 08:50 → 5TH 09:21 → II 12:45
PROVIDERS: ATTEND Internal Medicine
PROC: 3E043GC Introduction of Other Therapeutic Substance into Central Vein, Percutaneous Approach (ICD-10-PCS; principal; 2018-01-17)
DX: E83.42 Hypomagnesemia (principal)
CPT/HCPCS: 96365; 96366; 96372; J3475

== ENCOUNTER 2018-01-30 08:55 | Outpatient (CLI) | payer MEDICARE ==
[~2018-01-30 08:55] MED LIST changes: -DENOSUMAB 120 MG in SYRINGE, DISPOSABLE, 1 EACH SUBCUT PRN; -DENOSUMAB INJ/PF 120 MG/1.7 ML SDV SUBCUT PRN
[2018-01-30 10:17] LABS: HEMATOCRIT 36.1 % (37.9-51.0); MEAN CORPUSCULAR HEMOGLOBIN 33.2 pg (27.0-33.4); MEAN CORPUSCULAR HGB CONC 33.1 g/dL (32.0-36.0); MEAN CORPUSCULAR VOLUME 100 fl (80-97); PLATELET COUNT 296 10^3/uL (150-450); RED CELL DISTRIBUTION WIDTH 16.2 % (11.5-14.0); WHITE BLOOD COUNT 3.6 10^3/uL (4.0-10.5)
[2018-01-30 10:33] LABS: ALANINE AMINOTRANSFERASE 17 U/L (21-72); ALBUMIN 4.1 g/dL (3.5-5.0); ALKALINE PHOSPHATASE 63 U/L (38-126); ANION GAP 14 (5-19); ASPARTATE AMINO TRANSFERASE 20 U/L (17-59); BILIRUBIN,DIRECT 0.3 mg/dL (0.0-0.4); BILIRUBIN,TOTAL 0.3 mg/dL (0.2-1.3); BLOOD UREA NITROGEN 12 mg/dL (7-20); CALCIUM 9.8 mg/dL (8.4-10.2); CARBON DIOXIDE 26 mmol/L (22-30); CHLORIDE 104 mmol/L (98-107); GLUCOSE 117 mg/dL (75-110); POTASSIUM 4.5 mmol/L (3.6-5.0); SODIUM 143.9 mmol/L (137-145); TOTAL PROTEIN 7.4 g/dL (6.3-8.2)
[2018-01-30 11:02] LABS: ABSOLUTE LYMPHOCYTES# (MANUAL) 1.2 10^3/uL (0.5-4.7); ABSOLUTE MONOCYTES # (MANUAL) 0.5 10^3/uL (0.1-1.4); ABSOLUTE NEUTROPHILS# (MANUAL) 1.8 10^3/uL (1.7-8.2); BASOPHILS % (MANUAL) 0 % (0-2); EOSINOPHILS % (MANUAL) 3 % (0-6); LYMPHOCYTES % (MANUAL) 32 % (13-45); MONOCYTES % (MANUAL) 15 % (3-13); SEGMENTED NEUTROPHILS % (MAN) 50 % (42-78); TOTAL CELLS COUNTED 100; TOXIC GRANULATION 1+
[2018-01-30 11:03] LABS: ANISOCYTOSIS 1+; OVALOCYTES 1+; PLATELET COMMENT ADEQUATE; POIKILOCYTOSIS 1+; TOXIC VACUOLATION PRESENT
[2018-01-30 11:20] VITALS: BP 138/73
== END 2018-01-30 14:27 | disposition home or self-care (01) ==
LOC: II 08:55 → 5TH 09:00 → II 14:27
PROVIDERS: ATTEND Internal Medicine
PROC: 3E0430M Introduction of Antineoplastic, Monoclonal Antibody, into Central Vein, Percutaneous Approach (ICD-10-PCS; principal; 2018-01-30)
PROC: 3E043GC Introduction of Other Therapeutic Substance into Central Vein, Percutaneous Approach (ICD-10-PCS; 2018-01-30)
DX: Z51.11 Encounter for antineoplastic chemotherapy (principal); C32.0 Malignant neoplasm of glottis; C41.9 Malignant neoplasm of bone and articular cartilage, unspecified
CPT/HCPCS: 36415; 80053; 85025; 96360; 96374; 96375; 96413; 96415; J1200; J3490; J9055

== ENCOUNTER → 2018-02-06 | Outpatient (CLI) | payer MEDICARE ==
--- NOTE | 2018-02-06 09:42 | RADIOLOGY REPORT (SQ) ---
EXAM DESCRIPTION: CT SOFT TISSUE NECK WITH COMPLETED DATE/TIME: 02/06/2018 8:46 am REASON FOR STUDY: MALIGNANT NEOPLASM OF GLOTTIS (C32.0) C32.0 MALIGNANT NEOPLASM OF GLOTTIS COMPARISON: CT soft tissue neck 12/14/2017, 09/11/2017, 05/24/2017, 06/25/2016 TECHNIQUE: Post IV contrasted scanning from skull base through lung apices with review of bone, soft tissue and lung windows. Reconstructed coronal and sagittal MPR images reviewed. All images stored on PACS. All CT scanners at this facility use dose modulation, iterative reconstruction, and/or weight based d osing when appropriate to reduce radiation dose to as low as reasonably achievable (ALARA). [facility]: Dose Right [facility]: CareDose [facility]: Dose Right [facility]: Teradose 4D [facility]: [employer] CONTRAST TYPE AND DOSE: 80 mL of IV Isovue 370- low osmolar. RENAL FUNCTION: Creatinine 0.8 RADIATION DOSE: 13 mGy . LIMITATIONS: None. FINDINGS: SKULL BASE: Inferior brain parenchyma unremarkable MAJOR SALIVARY GLANDS: No solid or cystic masses. No inflammatory changes. LYMPHADENOPATHY: No adenopathy. Post left radical neck dissection MUCOSAL MASSES OR ASYMMETRY: No mucosal masses or asymmetry. LARYNX/CORDS: Post laryngectomy with tracheostomy an esophageal speech prosthesis present. 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 This is stable compared to 12/14/2017. Carotid circulation is normal. LUNG APICES: Bulla or blebs at the right lung apex. BONES: Diffuse degenerative changes cervical spine THYROID: Normal size. No masses. PARANASAL SINUSES: Clear. OTHER: No other significant finding. IMPRESSION: Stable appearance of the neck post laryngectomy and left radical neck dissection. TECHNICAL DOCUMENTATION: JOB ID: [id number] Quality ID # [id number]: Final reports with documentation of one or more dose reduction techniques (e.g., Au tomated exposure control, adjustment of the mA and/or kV according to patient size, use of iterative reconstruction technique) 2010 [employer]- All Rights Reserved Reading location - IP/workstation name: [email or web address]
--- NOTE | 2018-02-06 11:12 | RADIOLOGY REPORT (SQ) ---
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 Images reviewed with lung, soft tissue and bone windows. Reconstructed coronal and sagittal MPR images reviewed. All images stored on PACS. All CT scanners at this facility use dose modulation, iterative reconstruction, and/or weight based d osing when appropriate to reduce radiation dose to as low as reasonably achievable (ALARA). [facility]: Dose Right [facility]: CareDose [facility]: Dose Right [facility]: Teradose 4D [facility]: [employer] CONTRAST TYPE AND DOSE: contrast/concentration: Isovue 370.00 mg/ml; Total Contrast Delivered: 80.0 ml; Total Saline Delivered: 55.0 ml RENAL FUNCTION: Creatinine 0.8 RADIATION DOSE: 14 mGy . LIMITATIONS: None. FINDINGS: LUNGS AND PLEURA: Obstructive lung disease is present. Scar with bleb or bulla at the rig ht lung apex, stable. No pleural effusions. No pneumothorax. HILAR AND MEDIASTINAL STRUCTURES: No identified masses or abnormal nodes. HEART AND VASCULAR STRUCTURES: No aneurysm or dissection. No central pulmonary emboli. No pericardi al effusion. HARDWARE: Right-sided central line tip superior vena cava. UPPER ABDOMEN: No significant findings. Limited exam. THYROID AND OTHER SOFT TISSUES: Thyroid unremarkable. Left supraclavicular adenopathy seen on PET-CT 06/17/2017 has resolved. On today's study axial image 28, an 11 mm and 12 mm lymph node are present in the axilla (were 9 mm and 8 mm diameter on 12/14/2017). There is a 3 x 1 cm fluid collection in th e inferior left axilla non metabolic on prior PET-CT likely a seroma. This was 5 x 2.3 on 09/11/2017 a nd 3 x 1 cm on 12/14/2017 BONES: No significant finding. OTHER: No other significant finding. IMPRESSION: Slight increase in size of left axillary lymph nodes compared to previous exam 12/14/2017. TECHNICAL DOCUMENTATION: JOB ID: [id number] Quality ID # 436: Final reports with documentation of one or more dose reduction techniques (e.g., Au tomated exposure control, adjustment of the mA and/or kV according to patient size, use of iterative reconstruction technique) 2010 [employer]- All Rights Reserved Reading location - IP/workstation name: [facility]-[email or web address]
== END ==
LOC: RAD 08:20
PROVIDERS: ATTEND Physician Assistant Medical
DX: C32.0 Malignant neoplasm of glottis (principal)
CPT/HCPCS: 70491; 71260

== ENCOUNTER 2018-02-13 09:34 | Outpatient (CLI) | payer MEDICARE ==
[~2018-02-13 09:34] MED LIST changes: +DENOSUMAB 120 MG in SYRINGE, DISPOSABLE, 1 EACH SUBCUT PRN
[2018-02-13 09:53] VITALS: BP 125/74
[2018-02-13] MEDS: MAGNESIUM SULFATE 1 GM/D5W 100 ML IV SCH ×2 (11:05→12:00)
[2018-02-13] MEDS ORDERED: MAGNESIUM SULFATE 4 GM/D5W 100 ML IV ONE (12:00)
== END 2018-02-13 14:42 | disposition home or self-care (01) ==
LOC: II 09:34 → 5TH 09:37 → II 14:42
PROVIDERS: ATTEND Internal Medicine
PROC: 3E0430M Introduction of Antineoplastic, Monoclonal Antibody, into Central Vein, Percutaneous Approach (ICD-10-PCS; principal; 2018-02-13)
PROC: 3E043GC Introduction of Other Therapeutic Substance into Central Vein, Percutaneous Approach (ICD-10-PCS; 2018-02-13)
DX: Z51.11 Encounter for antineoplastic chemotherapy (principal); C32.0 Malignant neoplasm of glottis; C41.9 Malignant neoplasm of bone and articular cartilage, unspecified; E83.42 Hypomagnesemia
CPT/HCPCS: 96413; 96415; 96365; 96366; 96374; 96375; A9270 ×2; J1200; J3475; J3490; J0897; J9055; 96367

== ENCOUNTER 2018-02-22 08:19 | Outpatient (CLI) | payer MEDICARE ==
[~2018-02-22 08:19] MED LIST changes: -ACETAMINOPHEN 325 MG TABLET PO PRN; -CETUXIMAB IV PRN; -CONTAINER EMPTY IV PRN; -DENOSUMAB 120 MG in SYRINGE, DISPOSABLE, 1 EACH SUBCUT PRN; -DIPHENHYDRAMINE HCL 50 MG/ML VIAL IV PRN
[2018-02-22] MEDS: MAGNESIUM SULFATE/D5W 1 GM/100 ML RTUPB IV SCH ×4 (08:53→10:56)
[2018-02-22 09:14] VITALS: BP 130/70
== END 2018-02-22 14:07 | disposition home or self-care (01) ==
LOC: II 08:19 → 5TH 08:20 → II 14:07
PROVIDERS: ATTEND Internal Medicine
PROC: 3E043GC Introduction of Other Therapeutic Substance into Central Vein, Percutaneous Approach (ICD-10-PCS; principal; 2018-02-22)
DX: E83.42 Hypomagnesemia (principal)
CPT/HCPCS: 96365; 96366; 96374; J3475

== ENCOUNTER 2018-03-01 07:45 | Outpatient (CLI) | payer MEDICARE ==
[2018-03-01] MEDS: MAGNESIUM SULFATE/D5W 1 GM/100 ML RTUPB IV PRN ×4 (08:13→11:21)
[2018-03-01 08:23] VITALS: BP 141/66
== END 2018-03-01 12:38 | disposition home or self-care (01) ==
LOC: II 07:45 → 5TH 07:55 → II 12:38
PROVIDERS: ATTEND Internal Medicine
PROC: 3E043GC Introduction of Other Therapeutic Substance into Central Vein, Percutaneous Approach (ICD-10-PCS; principal; 2018-03-01)
DX: E83.42 Hypomagnesemia (principal)
CPT/HCPCS: 96365; 96366; J3475; 96367

== ENCOUNTER 2018-03-08 08:21 | Outpatient (CLI) | payer MEDICARE ==
[2018-03-08] MEDS: MAGNESIUM SULFATE 1 GM/D5W 100 ML IV PRN ×2 (08:50→09:47)
[2018-03-08 09:01] VITALS: BP 129/71
== END 2018-03-08 11:01 | disposition home or self-care (01) ==
LOC: II 08:21 → 5TH 08:27 → II 11:01
PROVIDERS: ATTEND Internal Medicine
PROC: 3E043GC Introduction of Other Therapeutic Substance into Central Vein, Percutaneous Approach (ICD-10-PCS; principal; 2018-03-08)
DX: E83.42 Hypomagnesemia (principal)
CPT/HCPCS: 96367; J3475; 96365; 96366

== ENCOUNTER 2018-03-20 12:25 | Outpatient (CLI) | payer MEDICARE ==
[~2018-03-20 12:25] MED LIST changes: +ACETAMINOPHEN 325 MG TABLET PO PRN; +CETUXIMAB IV PRN; +CONTAINER EMPTY IV PRN; +DIPHENHYDRAMINE HCL 50 MG/ML VIAL IV PRN; -NORMAL SALINE 250 ML IV PRN
[2018-03-20] MEDS: NORMAL SALINE 250 ML IV PRN ×2 (12:45→13:41)
[2018-03-20] MEDS ORDERED: MAGNESIUM SULFATE/D5W 2 GM/200 ML RTUPB IV ONE (12:55)
[2018-03-20 13:36] VITALS: BP 131/71
[2018-03-20] MEDS ORDERED: MAGNESIUM SULFATE/D5W 1 GM/100 ML RTUPB IV ONE (16:30)
== END 2018-03-20 16:57 | disposition home or self-care (01) ==
LOC: II 12:25 → 5TH 12:27 → II 16:57
PROVIDERS: ATTEND Internal Medicine
PROC: 3E0430M Introduction of Antineoplastic, Monoclonal Antibody, into Central Vein, Percutaneous Approach (ICD-10-PCS; principal; 2018-03-20)
PROC: 3E043GC Introduction of Other Therapeutic Substance into Central Vein, Percutaneous Approach (ICD-10-PCS; 2018-03-20)
DX: Z51.11 Encounter for antineoplastic chemotherapy (principal); C32.0 Malignant neoplasm of glottis
CPT/HCPCS: 96413; 96415; 96367; 96375; A9270 ×2; J1200; J3475; J9055; J3490

== ENCOUNTER 2018-04-03 08:57 | Outpatient (CLI) | payer MEDICARE ==
[~2018-04-03 08:57] MED LIST changes: +NORMAL SALINE 250 ML IV PRN
[2018-04-03 09:43] VITALS: BP 131/68
[2018-04-03] MEDS: MAGNESIUM SULFATE 1 GM/D5W 100 ML IV SCH ×2 (10:45→12:41)
== END 2018-04-03 15:21 | disposition home or self-care (01) ==
LOC: II 08:57 → 5TH 09:26 → II 15:21
PROVIDERS: ATTEND Internal Medicine
PROC: 3E04305 Introduction of Other Antineoplastic into Central Vein, Percutaneous Approach (ICD-10-PCS; principal; 2018-04-03)
PROC: 3E043GC Introduction of Other Therapeutic Substance into Central Vein, Percutaneous Approach (ICD-10-PCS; 2018-04-03)
DX: Z51.11 Encounter for antineoplastic chemotherapy (principal); C32.0 Malignant neoplasm of glottis; C41.9 Malignant neoplasm of bone and articular cartilage, unspecified
CPT/HCPCS: 96413; 96415; 96366; 96367; 96375; A9270 ×2; J1200; J3475; J9055; 96360; 96365; 96374; J3490

== ENCOUNTER 2018-04-12 08:34 | Outpatient (CLI) | payer MEDICARE ==
[~2018-04-12 08:34] MED LIST changes: -ACETAMINOPHEN 325 MG TABLET PO PRN; -CETUXIMAB IV PRN; -CONTAINER EMPTY IV PRN; -DIPHENHYDRAMINE HCL 50 MG/ML VIAL IV PRN
[2018-04-12] MEDS: MAGNESIUM SULFATE 1 GM/D5W 100 ML IV PRN ×2 (09:05→10:09)
[2018-04-12 09:11] VITALS: BP 135/78
== END 2018-04-12 11:26 | disposition home or self-care (01) ==
LOC: II 08:34 → 5TH 08:37 → II 11:26
PROVIDERS: ATTEND Internal Medicine
PROC: 3E043GC Introduction of Other Therapeutic Substance into Central Vein, Percutaneous Approach (ICD-10-PCS; principal; 2018-04-12)
DX: E83.42 Hypomagnesemia (principal)
CPT/HCPCS: 96367; 96374; J3475; 96365; 96366

== ENCOUNTER 2018-04-17 08:44 | Outpatient (CLI) | payer MEDICARE ==
[~2018-04-17 08:44] MED LIST changes: +ACETAMINOPHEN 325 MG TABLET PO PRN; +CETUXIMAB IV PRN; +CONTAINER EMPTY IV PRN; +DIPHENHYDRAMINE HCL 50 MG/ML VIAL IV PRN
[2018-04-17 08:57] VITALS: BP 126/74
[2018-04-17 09:21] LABS: ABSOLUTE EOSINOPHILS # (AUTO) 0.1 10^3/uL (0.0-0.6); ABSOLUTE LYMPHOCYTES (AUTO) 1.1 10^3/uL (0.5-4.7); ABSOLUTE MONOCYTES (AUTO) 0.2 10^3/uL (0.1-1.4); ABSOLUTE NEUT (AUTO) 2.5 10^3/uL (1.7-8.2); BASOPHILS % (AUTO) 0.4 % (0-2); EOSINOPHILS % (AUTO) 2.2 % (0-6); HEMATOCRIT 37.7 % (37.9-51.0); HEMOGLOBIN 12.5 g/dL (13.5-17.0); LYMPHOCYTES % (AUTO) 28.3 % (13-45); MEAN CORPUSCULAR HEMOGLOBIN 32.5 pg (27.0-33.4); MEAN CORPUSCULAR VOLUME 98 fl (80-97); MONOCYTES % (AUTO) 5.8 % (3-13); PLATELET COUNT 338 10^3/uL (150-450); RED BLOOD COUNT 3.84 10^6/uL (4.35-5.55); RED CELL DISTRIBUTION WIDTH 14.8 % (11.5-14.0); SEGMENTED NEUTROPHILS % (AUTO) 63.3 % (42-78); TOTAL CELLS COUNTED % (AUTO) 100 %; WHITE BLOOD COUNT 3.9 10^3/uL (4.0-10.5)
[2018-04-17 09:49] LABS: ALANINE AMINOTRANSFERASE 21 U/L (21-72); ALBUMIN 4.3 g/dL (3.5-5.0); ALKALINE PHOSPHATASE 54 U/L (38-126); ANION GAP 14 (5-19); ASPARTATE AMINO TRANSFERASE 16 U/L (17-59); BILIRUBIN,DIRECT 0.3 mg/dL (0.0-0.4); BILIRUBIN,TOTAL 0.5 mg/dL (0.2-1.3); BLOOD UREA NITROGEN 10 mg/dL (7-20); CALCIUM 9.3 mg/dL (8.4-10.2); CARBON DIOXIDE 26 mmol/L (22-30); CHLORIDE 105 mmol/L (98-107); GLUCOSE 101 mg/dL (75-110); POTASSIUM 3.9 mmol/L (3.6-5.0); SODIUM 145.2 mmol/L (137-145); TOTAL PROTEIN 7.8 g/dL (6.3-8.2)
== END 2018-04-17 14:37 | disposition home or self-care (01) ==
LOC: II 08:44 → 5TH 08:47 → II 14:37
PROVIDERS: ATTEND Internal Medicine
PROC: 3E0430M Introduction of Antineoplastic, Monoclonal Antibody, into Central Vein, Percutaneous Approach (ICD-10-PCS; principal; 2018-04-17)
PROC: 3E043GC Introduction of Other Therapeutic Substance into Central Vein, Percutaneous Approach (ICD-10-PCS; 2018-04-17)
DX: Z51.11 Encounter for antineoplastic chemotherapy (principal); C32.0 Malignant neoplasm of glottis
CPT/HCPCS: 36415; 83735; 85025; 80053; 96413; 96415; 96375; A9270 ×2; J1200; J9055; J3490

== ENCOUNTER → 2018-04-26 | Outpatient (CLI) | payer MEDICARE ==
--- NOTE | 2018-04-26 10:22 | RADIOLOGY REPORT (SQ) ---
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 Reconstructed coronal and sagittal MPR images reviewed. All images stored on PACS. All CT scanners at this facility use dose modulation, iterative reconstruction, and/or weight based d osing when appropriate to reduce radiation dose to as low as reasonably achievable (ALARA). [facility]: Dose Right [facility]: CareDose [facility]: Dose Right [facility]: Teradose 4D [facility]: [employer] CONTRAST TYPE AND DOSE: 75 mL of IV Omnipaque 350- low osmolar. RENAL FUNCTION: Creatinine 0.81 RADIATION DOSE: 13.5 mGy . LIMITATIONS: None. FINDINGS: Patient is post laryngectomy and left radical neck dissection, with skin thickening and so ft tissue stranding in the left supraclavicular region likely from radiation therapy. Esophageal spe ech prosthesis and tracheostomy are present. No bulky cervical adenopathy worrisome for tumor recurrence. No masses at the thoracic inlet worrisome for tumor recurrence. Thyroid and salivary glands, prevertebral soft tissues unremarkable. No other mucosal lesions. Oral cavity, tongue unremarkable. Orbits, inferior brain parenchyma in the field of view are unremarkabl e. Minimal fluid in the right posterior ethmoid air cells. Mild degenerative disc changes in the cervical spine without high-grade central or foraminal encroach ment. Normal arterial vascular enhancement in the field of view. Right-sided permanent central line tip [place] perior vena cava IMPRESSION: No CT evidence of recurrent laryngeal cancer TECHNICAL DOCUMENTATION: JOB ID: [id number] Quality ID # 436: Final reports with documentation of one or more dose reduction techniques (e.g., Au tomated exposure control, adjustment of the mA and/or kV according to patient size, use of iterative reconstruction technique) 2010 [employer]- All Rights Reserved Reading location - IP/workstation name: [facility]
--- NOTE | 2018-04-26 10:41 | RADIOLOGY REPORT (SQ) ---
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 Images reviewed with lung, soft tissue and bone windows. Reconstructed coronal a nd sagittal MPR images reviewed. All images stored on PACS. CT scan of the abdomen and pelvis performed with intravenous and without oral contrastusing helical s flavia technique with dynamic intravenous contrast injection. Images reviewed with lung, soft tissu e and bone windows. Reconstructed coronal and sagittal MPR images reviewed. Delayed images for eval uation of the urinary system also acquired and evaluated. All images stored on PACS. All CT scanners at this facility use dose modulation, iterative reconstruction, and/or weight based d osing when appropriate to reduce radiation dose to as low as reasonably achievable (ALARA). [facility]: Dose Right [facility]: CareDose [facility]: Dose Right [facility]: Teradose 4D [facility]: [employer] RADIATION DOSE: CT Rad equipment meets quality standard of care and radiation dose reduction techniq ues were employed. CTDIvol: 13.5 - 18.0 mGy. DLP: 2390 mGy-cm. . LIMITATIONS: None. FINDINGS: CHEST: LUNGS AND PLEURA: Lungs are hyperlucent from obstructive disease. No acute infiltrates. No pleural effusion. No pneumothorax. No worrisome pulmonary nodules. HILAR AND MEDIASTINAL STRUCTURES: Tracheostomy and esophageal speech prosthesis are present at the th oracic inlet. No mediastinal or hilar masses or adenopathy. HEART AND VASCULAR STRUCTURES: No aneurysm or dissection. No central pulmonary emboli. No pericardi al effusion. Moderate coronary artery calcifications. HARDWARE: Right jugular central line tip superior vena cava THYROID AND OTHER SOFT TISSUES: No masses. No adenopathy. BONES: No significant finding. OTHER: No other significant finding. ABDOMEN AND PELVIS: LIVER: Normal size. No masses. No dilated ducts. Benign 1.4 cm hemangioma sub- diaphragmatic surfac e left lobe liver, benign 2 cm hemangioma inferior right lobe liver SPLEEN: Normal size. No focal lesions. PANCREAS: No masses. No significant calcifications. No adjacent inflammation or peripancreatic fluid collections. Pancreatic duct not dilated. GALLBLADDER: No identified stones by CT criteria. No inflammatory changes to suggest cholecystitis. ADRENAL GLANDS: No significant masses or asymmetry. RIGHT KIDNEY AND URETER: No solid masses. Less than 1 cm cysts in the right upper and mid pole kidne y. No significant calcification. No hydronephrosis or hydroureter. LEFT KIDNEY AND URETER: No solid masses. No significant calcification. No hydronephrosis or hydrouret er. AORTA AND VESSELS: No aneurysm. No dissection. Renal arteries, SMA, celiac without stenosis. RETROPERITONEUM: No retroperitoneal adenopathy, hemorrhage or masses. BOWEL AND PERITONEAL CAVITY: No CT evidence of free intraperitoneal air or fluid, no CT evidence of b owel obstruction. There are scattered colonic diverticuli without CT signs of acute diverticulitis. APPENDIX: Normal. ABDOMINAL WALL: Fat containing right inguinal hernia PELVIS: Enlarged prostate. Bladder, rectum unremarkable. No free fluid. No adenopathy BONES: No significant or acute findings. OTHER: No other significant finding. IMPRESSION: No CT evidence of metastatic laryngeal neoplasm to the chest abdomen or pelvis TECHNICAL DOCUMENTATION: JOB ID: [id number] Quality ID # 436: Final reports with documentation of one or more dose reduction techniques (e.g., Au tomated exposure control, adjustment of the mA and/or kV according to patient size, use of iterative reconstruction technique) 2010 [employer]- All Rights Reserved Reading location - IP/workstation name: [email or web address]
== END ==
LOC: RAD 08:12
PROVIDERS: ATTEND Physician Assistant Medical
DX: C32.0 Malignant neoplasm of glottis (principal); R97.8 Other abnormal tumor markers; C41.9 Malignant neoplasm of bone and articular cartilage, unspecified
CPT/HCPCS: 70491; 71260; 74177

== ENCOUNTER → 2018-04-29 | Outpatient (CLI) | payer MEDICARE ==
--- NOTE | 2018-04-29 13:29 | RADIOLOGY REPORT (SQ) ---
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 RADIONUCLIDE AND DOSE: 20 millicuries Tc99m HDP. The route of agent administration: Intravenous. ADDITIONAL DRUGS AND DOSES: None. TECHNIQUE: Routine delayed images at 3 hours post radionuclide injection acquired of the bony skelet on including anterior and posterior whole-body projections and additional focused images as needed. LIMITATIONS: None. FINDINGS: BONES: Normal visualization without areas of photopenia or increased bony uptake of radiop harmaceutical. KIDNEYS: Symmetric excretion without obstruction. OTHER: No other significant finding. IMPRESSION: NORMAL BONE SCAN. COMMENT: Quality measure 147: Current bone scan is compared with any available plain radiographs, p rior bone scans, and CT/MRI. TECHNICAL DOCUMENTATION: JOB ID: [id number] [employer]- All Rights Reserved Reading location - IP/workstation name: [email or web address]
== END ==
LOC: RAD 08:38
PROVIDERS: ATTEND Physician Assistant Medical
DX: C32.0 Malignant neoplasm of glottis (principal)
CPT/HCPCS: 78306; A9561; Q9969

== ENCOUNTER 2018-05-01 11:13 | Outpatient (CLI) | payer MEDICARE ==
[2018-05-01 11:35] VITALS: BP 127/74
== END 2018-05-01 15:00 | disposition home or self-care (01) ==
LOC: II 11:13 → 5TH 11:17 → II 15:00
PROVIDERS: ATTEND Internal Medicine
PROC: 3E0430M Introduction of Antineoplastic, Monoclonal Antibody, into Central Vein, Percutaneous Approach (ICD-10-PCS; principal; 2018-05-01)
PROC: 3E043GC Introduction of Other Therapeutic Substance into Central Vein, Percutaneous Approach (ICD-10-PCS; 2018-05-01)
DX: Z51.11 Encounter for antineoplastic chemotherapy (principal); C32.0 Malignant neoplasm of glottis; C41.9 Malignant neoplasm of bone and articular cartilage, unspecified
CPT/HCPCS: 96413; 96415; 96375; A9270 ×2; J1200; J9055; J3490

== ENCOUNTER 2018-05-15 09:09 | Outpatient (CLI) | payer MEDICARE ==
[2018-05-15 10:10] VITALS: BP 112/64
[2018-05-15 11:21] LABS: ABSOLUTE BASOPHILS # (AUTO) 0.1 10^3/uL (0.0-0.2); ABSOLUTE EOSINOPHILS # (AUTO) 0.1 10^3/uL (0.0-0.6); ABSOLUTE LYMPHOCYTES (AUTO) 1.1 10^3/uL (0.5-4.7); ABSOLUTE MONOCYTES (AUTO) 0.3 10^3/uL (0.1-1.4); ABSOLUTE NEUT (AUTO) 3.2 10^3/uL (1.7-8.2); BASOPHILS % (AUTO) 1.1 % (0-2); EOSINOPHILS % (AUTO) 2.5 % (0-6); HEMATOCRIT 36.8 % (37.9-51.0); HEMOGLOBIN 12.1 g/dL (13.5-17.0); LYMPHOCYTES % (AUTO) 22.7 % (13-45); MEAN CORPUSCULAR HEMOGLOBIN 32.5 pg (27.0-33.4); MEAN CORPUSCULAR VOLUME 99 fl (80-97); MONOCYTES % (AUTO) 6.3 % (3-13); PLATELET COUNT 333 10^3/uL (150-450); RED BLOOD COUNT 3.73 10^6/uL (4.35-5.55); SEGMENTED NEUTROPHILS % (AUTO) 67.4 % (42-78); TOTAL CELLS COUNTED % (AUTO) 100 %; WHITE BLOOD COUNT 4.7 10^3/uL (4.0-10.5)
[2018-05-15] MEDS: MAGNESIUM SULFATE 1 GM/D5W 100 ML IV SCH ×2 (12:45→13:53)
== END 2018-05-15 16:59 | disposition home or self-care (01) ==
LOC: II 09:09 → 5TH 09:13 → 4W 09:20 → II 16:59
PROVIDERS: ATTEND Internal Medicine
PROC: 3E0430M Introduction of Antineoplastic, Monoclonal Antibody, into Central Vein, Percutaneous Approach (ICD-10-PCS; principal; 2018-05-15)
PROC: 3E043GC Introduction of Other Therapeutic Substance into Central Vein, Percutaneous Approach (ICD-10-PCS; 2018-05-15)
DX: Z51.11 Encounter for antineoplastic chemotherapy (principal); C32.0 Malignant neoplasm of glottis
CPT/HCPCS: 36415; 83735; 85025; 96413; 96415; 96367; 96375; A9270 ×2; J1200; J3475; J7050; J9055; 96366; J3490

== ENCOUNTER 2018-06-05 11:10 | Outpatient (CLI) | payer MEDICARE ==
[2018-06-05 11:30] VITALS: BP 102/56
== END 2018-06-05 15:34 | disposition home or self-care (01) ==
LOC: II 11:10 → 5TH 11:14 → II 15:34
PROVIDERS: ATTEND Internal Medicine
PROC: 3E0430M Introduction of Antineoplastic, Monoclonal Antibody, into Central Vein, Percutaneous Approach (ICD-10-PCS; principal; 2018-06-05)
PROC: 3E043GC Introduction of Other Therapeutic Substance into Central Vein, Percutaneous Approach (ICD-10-PCS; 2018-06-05)
DX: Z51.11 Encounter for antineoplastic chemotherapy (principal); C32.0 Malignant neoplasm of glottis
CPT/HCPCS: 96413; 96415; 96374; 96375; 96360; A9270 ×2; J1200; J9055; J3490

== ENCOUNTER → 2018-06-07 | Outpatient (CLI) | payer MEDICARE ==
--- NOTE | 2018-06-07 15:36 | RADIOLOGY REPORT (SQ) ---
EXAM DESCRIPTION: CT SOFT TISSUE NECK WITH COMPLETED DATE/TIME: 06/07/2018 3:21 pm REASON FOR STUDY: MALIGNANT NEOPLASM OF GLOTTIS C32.0 MALIGNANT NEOPLASM OF GLOTTIS R10.9 UNSPECIF IED ABDOMINAL PAIN R10.2 PELVIC AND PERINEAL PAIN COMPARISON: 04/26/2018 and 02/06/2018. TECHNIQUE: Post IV contrasted scanning from skull base through lung apices with review of bone, soft tissue and lung windows. Reconstructed coronal and sagittal MPR images reviewed. All images stored on PACS. All CT scanners at this facility use dose modulation, iterative reconstruction, and/or weight based d osing when appropriate to reduce radiation dose to as low as reasonably achievable (ALARA). [facility]: Dose Right [facility]: CareDose [facility]: Dose Right [facility]: Teradose 4D [facility]: [employer] CONTRAST TYPE AND DOSE: 76 mL Omnipaque 350- low osmolar. RENAL FUNCTION: BUN 4 creatinine 0.9. RADIATION DOSE: . LIMITATIONS: None. FINDINGS: SKULL BASE: Intact. MAJOR SALIVARY GLANDS: No solid or cystic masses. No inflammatory changes. LYMPHADENOPATHY: No adenopathy. MUCOSAL MASSES OR ASYMMETRY: No mucosal masses or asymmetry. LARYNX/CORDS: Stable surgical changes of laryngectomy. Tracheostomy and prosthetic speech device. VASCULAR STRUCTURES: The major vessels are patent. LUNG APICES: Apical bullae. Clear. BONES: Intact. THYROID: Normal size. No masses. PARANASAL SINUSES: Clear. OTHER: Stable surgical changes of left neck dissection. No other significant finding. IMPRESSION: STABLE SURGICAL CHANGES OF LARYNGECTOMY AND LEFT NECK DISSECTION. NO CT FINDINGS OF LOC AL RECURRENCE. TECHNICAL DOCUMENTATION: JOB ID: [id number] Quality ID # 436: Final reports with documentation of one or more dose reduction techniques (e.g., Au tomated exposure control, adjustment of the mA and/or kV according to patient size, use of iterative reconstruction technique) 2010 [employer]- All Rights Reserved Reading location - IP/workstation name: [email or web address]
--- NOTE | 2018-06-07 15:39 | RADIOLOGY REPORT (SQ) ---
EXAM DESCRIPTION: CT CHEST WITH COMPLETED DATE/TIME: 06/07/2018 3:21 pm REASON FOR STUDY: MALIGNANT NEOPLASM OF GLOTTIS C32.0 MALIGNANT NEOPLASM OF GLOTTIS R10.9 UNSPECIF IED ABDOMINAL PAIN R10.2 PELVIC AND PERINEAL PAIN COMPARISON: 04/26/2018 and 02/06/2018. TECHNIQUE: CT scan of the chest performed using helical scanning technique with dynamic intravenous contrast injection. Images reviewed with lung, soft tissue and bone windows. Reconstructed coronal and sagittal MPR and MIP images reviewed. All images stored on PACS. All CT scanners at this facility use dose modulation, iterative reconstruction, and/or weight based d osing when appropriate to reduce radiation dose to as low as reasonably achievable (ALARA). [facility]: Dose Right [facility]: CareDose [facility]: Dose Right [facility]: Teradose 4D [facility]: [employer] CONTRAST TYPE AND DOSE: 76 mL Omnipaque 350- low osmolar. RENAL FUNCTION: BUN 4 creatinine 0.9. RADIATION DOSE: . LIMITATIONS: None. FINDINGS: LUNGS AND PLEURA: Emphysematous changes with apical bullae. No opacities, nodules, masses . No pneumothorax. No effusions. HILAR AND MEDIASTINAL STRUCTURES: No identified masses or abnormal nodes. HEART AND VASCULAR STRUCTURES: No aneurysm or dissection. No central pulmonary emboli. No pericardi al effusion. HARDWARE: Vascular access port. UPPER ABDOMEN: No significant findings. Limited exam. THYROID AND OTHER SOFT TISSUES: No masses. No adenopathy. BONES: No significant finding. OTHER: No other significant finding. IMPRESSION: CHRONIC EMPHYSEMATOUS CHANGES. OTHERWISE UNREMARKABLE CT OF THE CHEST WITH IV CONTRAST. NO EVIDENCE OF METASTATIC INVOLVEMENT IN THE CHEST. TECHNICAL DOCUMENTATION: JOB ID: [id number] Quality ID # 436: Final reports with documentation of one or more dose reduction techniques (e.g., Au tomated exposure control, adjustment of the mA and/or kV according to patient size, use of iterative reconstruction technique) 2010 [employer]- All Rights Reserved Reading location - IP/workstation name: [email or web address]
--- NOTE | 2018-06-07 15:44 | RADIOLOGY REPORT (SQ) ---
EXAM DESCRIPTION: CT ABD/PELVIS WITH IV ONLY COMPLETED DATE/TIME: 06/07/2018 3:21 pm REASON FOR STUDY: ABD PAIN,PELVIC AND PERINEAL PAIN C32.0 MALIGNANT NEOPLASM OF GLOTTIS R10.9 UNSP ECIFIED ABDOMINAL PAIN R10.2 PELVIC AND PERINEAL PAIN COMPARISON: 04/26/2018 and 09/18/2009. TECHNIQUE: CT scan of the abdomen and pelvis performed using helical scanning technique with dynamic intravenous contrast injection. No oral contrast. Images reviewed with lung, soft tissue, and bone windows. Reconstructed coronal and sagittal MPR images reviewed. Delayed images for evaluation of the urinary system also acquired. All images stored on PACS. All CT scanners at this facility use dose modulation, iterative reconstruction, and/or weight based d osing when appropriate to reduce radiation dose to as low as reasonably achievable (ALARA). [facility]: Dose Right [facility]: CareDose [facility]: Dose Right [facility]: Teradose 4D [facility]: [employer] CONTRAST TYPE AND DOSE: contrast/concentration: Isovue 350.00 mg/ml; Total Contrast Delivered: 76.0 ml; Total Saline Delivered: 67.0 ml RENAL FUNCTION: BUN 4 creatinine 0.9. RADIATION DOSE: . LIMITATIONS: None. FINDINGS: LOWER CHEST: No significant findings. No nodules or infiltrates. LIVER: Normal size. Previously seen hemangiomas appear unchanged. No dilated ducts. SPLEEN: Normal size. No focal lesions. PANCREAS: No masses. No significant calcifications. No adjacent inflammation or peripancreatic fluid collections. Pancreatic duct not dilated. GALLBLADDER: No identified stones by CT criteria. No inflammatory changes to suggest cholecystitis. ADRENAL GLANDS: No significant masses or asymmetry. RIGHT KIDNEY AND URETER: Small cortical cysts. No solid masses. No significant calcifications. N o hydronephrosis or hydroureter. LEFT KIDNEY AND URETER: No solid masses. No significant calcifications. No hydronephrosis or hydr oureter. AORTA AND VESSELS: No aneurysm. No dissection. Renal arteries, SMA, celiac without stenosis. RETROPERITONEUM: No retroperitoneal adenopathy, hemorrhage or masses. BOWEL AND PERITONEAL CAVITY: Colonic diverticulosis. No masses or inflammatory changes. No free flui d or peritoneal masses. APPENDIX: Normal. PELVIS: No mass. No free fluid. Normal bladder. ABDOMINAL WALL: No masses. No hernias. BONES: No significant or acute findings. OTHER: No other significant finding. IMPRESSION: 1. STABLE HEPATIC HEMANGIOMAS. 2. SMALL CORTICAL CYSTS IN THE RIGHT KIDNEY. 3. COLONIC DIVERTICULOSIS. NO EVIDENCE OF DIVERTICULITIS. 4. NO OTHER SIGNIFICANT OR ACUTE FINDING IN THE ABDOMEN OR PELVIS ON CT SCAN WITH IV CONTRAST. NO EV IDENCE OF METASTATIC INVOLVEMENT IN THE ABDOMEN OR PELVIS. TECHNICAL DOCUMENTATION: JOB ID: [id number] Quality ID # 436: Final reports with documentation of one or more dose reduction techniques (e.g., Au tomated exposure control, adjustment of the mA and/or kV according to patient size, use of iterative reconstruction technique) 2010 [employer]- All Rights Reserved Reading location - IP/workstation name: [email or web address]
== END ==
LOC: RAD 14:37
PROVIDERS: ATTEND Internal Medicine
DX: C32.0 Malignant neoplasm of glottis (principal); R10.9 Unspecified abdominal pain; R10.2 Pelvic and perineal pain
CPT/HCPCS: 70491; 71260; 74177

== ENCOUNTER 2018-07-31 09:53 | Outpatient (CLI) | payer MEDICARE ==
[~2018-07-31 09:53] MED LIST changes: -ACETAMINOPHEN 325 MG TABLET PO PRN
[2018-07-31] MEDS ORDERED: CONTAINER EMPTY IV PRN (10:21)
[2018-07-31] MEDS ORDERED: CETUXIMAB IV PRN (10:21)
[2018-07-31] MEDS ORDERED: DEXAMETHASONE SOD PHOSPHATE INJ 4 MG/1 ML VIAL ONE (11:45)
[2018-07-31 12:11] VITALS: BP 143/68
[2018-07-31] MEDS ORDERED: DEXAMETHASONE SOD PHOS INJ 10 MG/1 ML VIAL IV ONE (12:15)
== END 2018-07-31 14:19 | disposition home or self-care (01) ==
LOC: II 09:53 → 5TH 09:55 → II 14:19
PROVIDERS: ATTEND Internal Medicine
PROC: 3E0330M Introduction of Antineoplastic, Monoclonal Antibody, into Peripheral Vein, Percutaneous Approach (ICD-10-PCS; principal; 2018-07-31)
PROC: 3E033GC Introduction of Other Therapeutic Substance into Peripheral Vein, Percutaneous Approach (ICD-10-PCS; 2018-07-31)
DX: Z51.11 Encounter for antineoplastic chemotherapy (principal); C32.0 Malignant neoplasm of glottis
CPT/HCPCS: 96413; 96367; J1100; J1200; A9270; J9055; 96375; 96415; J3490

== ENCOUNTER → 2018-08-13 | Outpatient (CLI) | payer MEDICARE ==
--- NOTE | 2018-08-13 09:23 | RADIOLOGY REPORT (SQ) ---
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 TECHNIQUE: CT scan of the chest performed using helical scanning technique with dynamic intravenous contrast injection. Images reviewed with lung, soft tissue and bone windows. Reconstructed coronal and sagittal MPR and MIP images reviewed. All images stored on PACS. All CT scanners at this facility use dose modulation, iterative reconstruction, and/or weight based d osing when appropriate to reduce radiation dose to as low as reasonably achievable (ALARA). [facility]: Dose Right [facility]: CareDose [facility]: Dose Right [facility]: Teradose 4D [facility]: [employer] CONTRAST TYPE AND DOSE: Please see medical record. RENAL FUNCTION: Within acceptable limits. RADIATION DOSE: . LIMITATIONS: None. FINDINGS: LUNGS AND PLEURA: Bullous changes right apex. No suspicious opacities. No nodules or acu te infiltrates detected. No pleural effusion. HILAR AND MEDIASTINAL STRUCTURES: No identified masses or abnormal nodes. HEART AND VASCULAR STRUCTURES: No pericardial effusion. No evidence of aortic aneurysm or dissection . Heavy coronary calcification. HARDWARE: Right port. UPPER ABDOMEN: No significant findings. Limited exam. THYROID AND OTHER SOFT TISSUES: Incompletely assessed. Previous tracheostomy. Please see separately dictated neck CT report from same date. 1.6 x 2.7 cm low density circumscribed mass anterior to the medial clavicle, subcutaneous. Probable sebaceous cyst. BONES: No significant finding. OTHER: No other significant finding. IMPRESSION: 1. No acute or suspicious thoracic abnormality. TECHNICAL DOCUMENTATION: JOB ID: [id number] Quality ID # 436: Final reports with documentation of one or more dose reduction techniques (e.g., Au tomated exposure control, adjustment of the mA and/or kV according to patient size, use of iterative reconstruction technique) 2010 [employer]- All Rights Reserved Reading location - IP/workstation name: [email or web address]
--- NOTE | 2018-08-13 10:35 | RADIOLOGY REPORT (SQ) ---
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 Reconstructed coronal and sagittal MPR images reviewed. All images stored on PACS. All CT scanners at this facility use dose modulation, iterative reconstruction, and/or weight based d osing when appropriate to reduce radiation dose to as low as reasonably achievable (ALARA). [facility]: Dose Right [facility]: CareDose [facility]: Dose Right [facility]: Teradose 4D [facility]: [employer] CONTRAST TYPE AND DOSE: contrast/concentration: Isovue 350.00 mg/ml; Total Contrast Delivered: 75.0 ml; Total Saline Delivered: 55.0 ml RENAL FUNCTION: Creatinine 0.9 RADIATION DOSE: 14.4 mGy . LIMITATIONS: None. FINDINGS: Patient is post laryngectomy and left radical neck dissection. There is a tracheostomy tu be in place in good positioning, and an esophageal speech prosthesis. 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 Left internal jugular vein is not visualized. In the left supraclavicular region, a 4 cm transverse by 2.7 cm AP by 2 cm craniocaudad soft tissue mass is present abutting the superior aspect of the left subclavian artery and vein. This is worriso me for local tumor recurrence. This is best shown on coronal image 69 and axial image 86. SKULL BASE: Inferior brain parenchyma in the field of view unremarkable. MAJOR SALIVARY GLANDS: No solid or cystic masses. No inflammatory changes. LYMPHADENOPATHY: No adenopathy. MUCOSAL MASSES OR ASYMMETRY: No mucosal masses or asymmetry. LARYNX/CORDS: Post laryngectomy VASCULAR STRUCTURES: Bilateral carotid arteries and carotid bifurcations are patent. Bilateral verte bral arteries are patent LUNG APICES: Hyperinflation from obstructive disease BONES: Degenerative disc changes in the mid cervical spine THYROID: Normal size. No masses. PARANASAL SINUSES: Clear. OTHER: No other significant finding. IMPRESSION: Post laryngectomy and left radical neck dissection. Recurrent left supraclavicular soft tissue mass 4 x 2.7 x 2 cm. TECHNICAL DOCUMENTATION: JOB ID: [id number] Quality ID # [id number]: Final reports with documentation of one or more dose reduction techniques (e.g., Au tomated exposure control, adjustment of the mA and/or kV according to patient size, use of iterative reconstruction technique) 2010 [employer]- All Rights Reserved Reading location - IP/workstation name: [facility]
== END ==
LOC: RAD 08:20
PROVIDERS: ATTEND Internal Medicine
DX: C32.0 Malignant neoplasm of glottis (principal)
CPT/HCPCS: 70491; 71260

== ENCOUNTER 2018-08-14 10:12 | Outpatient (CLI) | payer MEDICARE ==
[~2018-08-14 10:12] MED LIST changes: +DEXAMETHASONE SOD PHOSPHATE 10 MG in NORMAL SALINE 50 ML IV PRN; +DIPHENHYDRAMINE HCL 50 MG in NORMAL SALINE 50 ML IV PRN; -DIPHENHYDRAMINE HCL 50 MG/ML VIAL IV PRN
[2018-08-14] MEDS ORDERED: CETUXIMAB IV PRN (10:29)
[2018-08-14] MEDS ORDERED: CONTAINER EMPTY IV PRN (10:29)
[2018-08-14 10:48] VITALS: BP 132/74
== END 2018-08-14 14:32 | disposition home or self-care (01) ==
LOC: II 10:12 → 5TH 10:29 → II 14:32
PROVIDERS: ATTEND Internal Medicine
PROC: 3E0430M Introduction of Antineoplastic, Monoclonal Antibody, into Central Vein, Percutaneous Approach (ICD-10-PCS; principal; 2018-08-14)
PROC: 3E0433Z Introduction of Anti-inflammatory into Central Vein, Percutaneous Approach (ICD-10-PCS; 2018-08-14)
PROC: 3E043GC Introduction of Other Therapeutic Substance into Central Vein, Percutaneous Approach (ICD-10-PCS; 2018-08-14)
DX: Z51.11 Encounter for antineoplastic chemotherapy (principal); C32.0 Malignant neoplasm of glottis
CPT/HCPCS: 96413; 96415; 96367; 96374; 96360; J1200; A9270; J1100; J9055; J3490

== ENCOUNTER 2018-11-23 21:00 | Emergency (ER) | payer MEDICARE ==
[2018-11-23] MEDS ORDERED: FENTANYL CITRATE INJ/PF 100 MCG/2 ML AMPUL IV ONE (21:25)
--- NOTE | 2018-11-23 21:30 | ER Document Report ---
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 He reports intermittent shortness of breath. He denies history of blood clot, is not on a blood thinner. He states he has completed radiation, chemotherapy, and he is currently on immunotherapy, told that he had been cleared of cancer except now possibly in a lymph node. He follows with Dr. Navas. He does have a history of inguinal hernia repair although he cannot remember which side this was on. Only other medical history reported is hypertension, medicated. He also is on pain management for cancer (morphine and oxycodone). TRAVEL OUTSIDE OF THE [place] IN LAST 30 DAYS: No - Related Data Allergies/Adverse Reactions: No Known Allergies Allergy (Verified 11/23/18 21:07) Past Medical History - General Information source: Patient, Relative - son - Social History Smoking Status: Unknown if Ever Smoked Frequency of alcohol use: None Drug Abuse: None Lives with: Family Family History: Reviewed & Not Pertinent - Past Medical History Cardiac Medical History: Reports: Hx Hypertension Denies: Hx Coronary Artery Disease, Hx Heart Attack Pulmonary Medical History: Denies: Hx Asthma, Hx Bronchitis, Hx COPD, Hx Pneumonia Neurological Medical History: Denies: Hx Cerebrovascular Accident, Hx Seizures Malignancy Medical History: Reports Other - oral/throat cancer Musculoskeletal Medical History: Denies Hx Arthritis Past Surgical History: Reports: Hx Testicular Surgery, Other - vocal chord removal, removal of oral/throat mass - Immunizations Hx Diphtheria, Pertussis, Tetanus Vaccination: Yes Review of Systems - Review of Systems Constitutional: No symptoms reported EENT: No symptoms reported Cardiovascular: See HPI Respiratory: No symptoms reported Gastrointestinal: See HPI Genitourinary: No symptoms reported Male Genitourinary: No symptoms reported Musculoskeletal: See HPI Skin: No symptoms reported Hematologic/Lymphatic: No symptoms reported Neurological/Psychological: No symptoms reported Physical Exam - Vital signs Vitals: Temp Pulse Resp BP Pulse Ox 98.8 F 147 H 20 124/69 99 11/23/18 21:11 11/23/18 21:11 11/23/18 21:11 11/23/18 21:11 11/23/18 21:11 - Notes Notes: GENERAL: Alert, appears uncomfortable HEAD: Normocephalic, atraumatic. EYES: Pupils equal, round, and reactive to light. Extraocular movements intact. ENT: Oral mucosa moist, tongue midline. Oropharynx unremarkable. Airway patent. Nares patent, no nasal septal hematoma, TM's intact. NECK: Full range of motion. Supple. There is an opening from previous tracheostomy where patient suction secretions out of. LUNGS: Clear to auscultation bilaterally, no wheezes, rales, or rhonchi. No respiratory distress. HEART: Tachycardic, normal rhythm, no murmur ABDOMEN: Upper abdomen benign, lower examination shows right inguinal hernia which is tender and firm but not erythematous or rigid. Remaining abdomen unremarkable. GENITOURINARY: No tenderness, swelling, or concerning N normalities noted EXTREMITIES: There is swelling of the left upper extremity which is very notable compared to the right. No erythema or noted tenderness however. Normal wrapper and preserver, normal distal neurovascular exam. Swelling extends up into the neck, there is some soft tissue swelling above the clavicle as well with firmness. BACK: no cervical, thoracic, lumbar midline tenderness. No saddle anesthesia, normal distal neurovascular exam. NEUROLOGICAL: Alert and oriented x3. Unable to speak. [cranial nerves II through XII grossly intact]. SKIN: Warm, dry, normal turgor. No rashes or lesions noted. Course - Re-evaluation Re-evalutation: 11/23/18 21:29 On initial presentation patient has a firm and tender area in the right frontal area consistent with likely femoral hernia, patient has pain and I am unable to reduce this at this time, placing IV access, given pain medication, will attempt again to reduce. Patient also has notably swollen left upper extremity all the way down to the hand, concerning for DVT or cancerous obstruction. Patient is also notably tachycardic in the 140s. He is not febrile, hypoxic, or distress. After fentanyl, heart rate in the 130s, patient more comfortable, but I was unable to reduce the right inguinal hernia. Spoke with Dr. Pete Vieyra. 11/23/18 21:[address] Camara, he will evaluate the patient. Patient medicated with dilaudid. Patient given additional Dilaudid after first attempt by surgeon was unsuccessful, after additional Dilaudid patient became more comfortable, hernia was able to be reduced by Dr. Camara although this did slowly start coming back out. Because this was reducible and patient has multiple other issues, will proceed with CTA of the chest and include abdomen/pelvis to further evaluate. CT showing left supraclavicular mass with compression of blood vessels likely resulting in swelling of the left upper extremity. Ultrasound not showing DVTs in the upper extremity. PTT is elevated at 120, suspected DVT is only secondary to lack of blood flow. No pulmonary embolism is seen. Patient is still somewhat tachycardic. He still intermittently in pain. Updated Dr. Camara on the CAT scan results. Spoke with Dr. Vieyra. Discussed with patient and son, patient had initial surgeries and management at [facility], requests to go back there. We do not have surgical oncology or vascular specialty here. 11/24/18 00:[address] Boothe, hospitalist at [facility], patient accepted for transfer. Patient has been reevaluated twice. He denies abdominal pain, he states his left arm hurts and he has asked for additional pain medication, he was provided with this. His urinalysis shows elevated specific gravity but is otherwise normal, he was given some IV fluids. 11/24/18 08:30 Transport team is still not available, probably another hour. Patient reevaluated again at bedside, appears comfortable, no current complaints. Heart rate is still in the 120s but his examination is otherwise unchanged. Report/handoff given to Sonny Abreu - Vital Signs Vital signs: Temp Pulse Resp BP Pulse Ox 97.8 F 91 20 135/96 H 97 11/24/18 06:30 11/24/18 04:00 11/24/18 07:00 11/24/18 07:00 11/24/18 07:00 - Laboratory Result Diagrams: 11/23/18 21:41 11/23/18 21:34 Laboratory results interpreted by me: 11/23/18 11/23/18 11/23/18 21:34 21:34 21:41 WBC 12.0 H RBC 3.60 L Hgb 9.2 L Hct 28.9 L MCH 25.7 L RDW 18.7 H Plt Count 858 H Seg Neuts % (Manual) 93 H Lymphocytes % (Manual) 4 L Abs Neuts (Manual) 11.2 H PT 16.4 H APTT 121.9 H Chloride 97 L Glucose 158 H ALT 15 L Total Protein 8.6 H Urine Protein Urine Ketones Urine Blood 11/24/18 01:59 WBC RBC Hgb Hct MCH RDW Plt Count Seg Neuts % (Manual) Lymphocytes % (Manual) Abs Neuts (Manual) PT APTT Chloride Glucose ALT Total Protein Urine Protein 30 H Urine Ketones 20 H Urine Blood SMALL H Discharge - Discharge Clinical Impression: Supraclavicular mass, Left arm swelling, Tachycardia Abdominal pain Qualifiers: Abdominal location: generalized Qualified Code(s): R10.84 - Generalized abd ominal pain Condition: Fair Referrals: JOSE NAVAS MD [ACTIVE STAFF] - Follow up as needed
[2018-11-23] MEDS ORDERED: HYDROMORPHONE HCL INJ/PF 2 MG/ML AMPULE IV ONE ×2 (21:47→22:17)
[2018-11-23 22:10] LABS: HEMATOCRIT 28.9 % (37.9-51.0); HEMOGLOBIN 9.2 g/dL (13.5-17.0); MEAN CORPUSCULAR HEMOGLOBIN 25.7 pg (27.0-33.4); MEAN CORPUSCULAR VOLUME 80 fl (80-97); PLATELET COUNT 858 10^3/uL (150-450); RED CELL DISTRIBUTION WIDTH 18.7 % (11.5-14.0)
[2018-11-23] MEDS ORDERED: HYDROMORPHONE HCL INJ/PF 2 MG/ML AMPULE ONE (22:18)
[2018-11-23 22:28] LABS: ABSOLUTE LYMPHOCYTES# (MANUAL) 0.5 10^3/uL (0.5-4.7); ABSOLUTE MONOCYTES # (MANUAL) 0.4 10^3/uL (0.1-1.4); ABSOLUTE NEUTROPHILS# (MANUAL) 11.2 10^3/uL (1.7-8.2); BASOPHILS % (MANUAL) 0 % (0-2); EOSINOPHILS % (MANUAL) 0 % (0-6); LYMPHOCYTES % (MANUAL) 4 % (13-45); MONOCYTES % (MANUAL) 3 % (3-13); SEGMENTED NEUTROPHILS % (MAN) 93 % (42-78); TOTAL CELLS COUNTED 100
[2018-11-23 22:31] LABS: ANISOCYTOSIS 1+; HYPOCHROMASIA 1+; OVALOCYTES SLIGHT; PLATELET COMMENT ADEQUATE; POIKILOCYTOSIS 1+; TEAR DROP CELLS SLIGHT; TOXIC GRANULATION SLIGHT; TOXIC VACUOLATION PRESENT
[2018-11-23 22:43] LABS: ALANINE AMINOTRANSFERASE 15 U/L (21-72); ALBUMIN 4.2 g/dL (3.5-5.0); ALKALINE PHOSPHATASE 124 U/L (38-126); ANION GAP 19 (5-19); ASPARTATE AMINO TRANSFERASE 18 U/L (17-59); BILIRUBIN,DIRECT 0.4 mg/dL (0.0-0.4); BILIRUBIN,TOTAL 0.7 mg/dL (0.2-1.3); BLOOD UREA NITROGEN 16 mg/dL (7-20); CARBON DIOXIDE 24 mmol/L (22-30); CHLORIDE 97 mmol/L (98-107); GLUCOSE 158 mg/dL (75-110); SODIUM 139.6 mmol/L (137-145); TOTAL PROTEIN 8.6 g/dL (6.3-8.2)
--- NOTE | 2018-11-23 22:46 | EKG REPORT ---
SEVERITY:- BORDERLINE ECG - SINUS TACHYCARDIA VENTRICULAR PREMATURE COMPLEX BORDERLINE INFERIOR Q WAVES : Confirmed by: Manfred Carrillo MD 23-Nov-2018 22:45:49
--- NOTE | 2018-11-23 22:58 | RADIOLOGY REPORT (SQ) ---
EXAM DESCRIPTION: XR CHEST 1 VIEW COMPLETED DATE/TME: 11/23/2018 21:25 CLINICAL HISTORY: 68 years, Male, shortness of breath, tachycardia Comparison: None FINDINGS: No focal lung consolidation. No pleural effusion. No pneumothorax. Cardiac and mediastinal silhouette is unremarkable. Mediport from a right IJ approach terminates in the upper SVC. No acute osseous abnormality. Soft tissues are unremarkable. IMPRESSION: No acute findings. No focal lung consolidation.
--- NOTE | 2018-11-23 22:59 | PDOC CONSULTATION ---
History of Present Illness Admission Date/PCP: LALY EMANUEL Patient complains of: left arm pains and swelling right groin x 3 days History of Present Illness: DNADRE COCHRAN JR is a 68 year old male with history of throat/laryngeal ca post surgery radiation and chemotherapy. C/o left arm pains and swelling and right inguinal swelling past 3 days. Denies N/V. Had urgery in the past but unable to tell which side. Past Medical History Cardiac Medical History: Reports: Hypertension Denies: Coronary Artery Disease, Myocardial Infarction Pulmonary Medical History: Denies: Asthma, Bronchitis, Chronic Obstructive Pulmonary Disease (COPD), Pneumonia Neurological Medical History: Denies: Seizures Musculoskeltal Medical History: Denies: Arthritis Hematology: Reports: Anemia - post sx Past Surgical History Past Surgical History: Reports: Other - laryngeal ca surgery Inguinal hernia repair. Social History Smoking Status: Unknown if Ever Smoked Family History Family History: Reviewed & Not Pertinent Parental Family History Reviewed: Yes Children Family History Reviewed: No Sibling(s) Family History Reviewed.: No Medication/Allergy Home Medications: RX: Amlodipine Besylate 5 mg PO DAILY 06/22/17 RX: Cyanocobalamin (Vitamin B-12) [Vitamin B-12] 1,000 mcg PO ASDIR PRN 06/22/17 RX: Morphine Sulfate [Morphabond ER] 15 mg PO BID 06/22/17 RX: Oxycodone HCl 5 mg PO Q6HP PRN 06/22/17 Allergies/Adverse Reactions: No Known Allergies Allergy (Verified 11/23/18 21:07) Review of Systems Constitutional: PRESENT: as per HPI, other - denies fever/chills Eyes: PRESENT: other - no visual/hearing changes Cardiovascular: PRESENT: other - no chest pains/cough Gastrointestinal: PRESENT: other - right groin pains when attempted reduction of oncarcerated inguinal hernia. He claims he is able to reduce it in the past Genitourinary: PRESENT: other - no dysuria Physical Exam Vital Signs: Temp Pulse Resp BP Pulse Ox 98.8 F 147 H 18 120/75 99 11/23/18 21:11 11/23/18 21:11 11/23/18 22:00 11/23/18 22:00 11/23/18 22:00 Intake & Output 11/22/18 11/23/18 11/24/18 06:59 06:59 06:59 Weight 80.4 kg General appearance: PRESENT: disheveled, mild distress Head exam: PRESENT: atraumatic Eye exam: PRESENT: conjunctiva pink Mouth exam: PRESENT: dry mucosa Throat exam: PRESENT: other - neck scar and discoloration due to radiation therapy Neck exam: PRESENT: full ROM Respiratory exam: PRESENT: clear to auscultation enrique Cardiovascular exam: PRESENT: RRR Pulses: PRESENT: normal radial pulses Vascular exam: PRESENT: normal capillary refill GI/Abdominal exam: PRESENT: tenderness - swelling right inguinal area. Partially reduced but easily comes back. No inflammation Neurological exam: PRESENT: alert, oriented to person, oriented to place, oriented to time, oriented to situation Psychiatric exam: PRESENT: appropriate affect Skin exam: PRESENT: normal color, warm Results Laboratory Results: 11/23/18 21:41 11/23/18 21:34 11/23/18 11/23/18 11/23/18 21:34 21:34 21:34 WBC Cancelled RBC Cancelled Hgb Cancelled Hct Cancelled MCV Cancelled MCH Cancelled MCHC Cancelled RDW Cancelled Plt Count Cancelled Seg Neutrophils % Cancelled Lymphocytes % Cancelled Monocytes % Cancelled Eosinophils % Cancelled Basophils % Cancelled Absolute Neutrophils Cancelled Absolute Lymphocytes Cancelled Absolute Monocytes Cancelled Absolute Eosinophils Cancelled Absolute Basophils Cancelled Sodium 139.6 Potassium 4.0 Chloride 97 L Carbon Dioxide 24 Anion Gap 19 BUN 16 Creatinine 1.00 Est GFR ( Amer) > 60 Est GFR (Non-Af Amer) > 60 Glucose 158 H Lactic Acid 1.7 Calcium 10.0 Total Bilirubin 0.7 AST 18 ALT 15 L Alkaline Phosphatase 124 Total Protein 8.6 H Albumin 4.2 11/23/18 21:41 WBC 12.0 H RBC 3.60 L Hgb 9.2 L Hct 28.9 L MCV 80 MCH 25.7 L MCHC 32.0 RDW 18.7 H Plt Count 858 H Seg Neutrophils % Not Reportable Lymphocytes % Not Reportable Monocytes % Not Reportable Eosinophils % Not Reportable Basophils % Not Reportable Absolute Neutrophils Not Reportable Absolute Lymphocytes Not Reportable Absolute Monocytes Not Reportable Absolute Eosinophils Not Reportable Absolute Basophils Not Reportable Sodium Potassium Chloride Carbon Dioxide Anion Gap BUN Creatinine Est GFR ( Amer) Est GFR (Non-Af Amer) Glucose Lactic Acid Calcium Total Bilirubin AST ALT Alkaline Phosphatase Total Protein Albumin 11/23/18 21:34 Troponin I < 0.012 Assessment & Plan - Diagnosis (1) Incarcerated right inguinal hernia Is this a current diagnosis for this admission?: Yes (2) Swelling of left upper extremity Is this a current diagnosis for this admission?: Yes (3) Laryngeal cancer Is this a current diagnosis for this admission?: Yes - Time Time Spent: 30 to 50 Minutes - Inpatient Certification Medical Necessity: Need For IV Fluids, Need for Surgery, Risk of Complication if Not Cared For in Hospital - Plan Summary Plan Summary: Await CT scan of chest abd/pelvis to check for SBO CT scan showed small incarcerated right inguinal hernia Patient is being transfered to a tertiary facility for a leftmediastinal mass occluding left subclaviian vein causing left arm swelling. Told ER PA to inform tertiary facility that patient still has a right inguinal incarcerated hernia. I re=examined patient and noted a persistent right inguinal hernia that is tender when trying to reduce manually.
[2018-11-23 23:18] LABS: INTERNATIONAL RATION (INR) 1.26; PROTHROMBIN TIME 16.4 SEC (11.4-15.4)
[2018-11-23 23:21] LABS: PARTIAL THROMBOPLASTIN TIME 121.9 SEC (23.5-35.8)
--- NOTE | 2018-11-23 23:34 | XCELERA REPORT ---
[address] [address] Upper Extremity Venous Evaluation Name: SAMMIE DANDRE JOHNSON JR Age: 68 yrs Gender: Male : 1950 Patient Status: Emergency Patient Location: ER Study Date: 11/23/2018 10:08 PM Procedure: Unilateral duplex scan of the left upper extremity veins was performed, including responses to compression and other maneuvers. Reason For Study: left upper extremity swelling Ordering Physician: MARTHA ZEPEDA Performed By: Jayjay Segovia Left Sided Venous Evaluation Large heterogenous, partly vascular mass noted in the low left neck, Supraclavicular area. Abnormal vessel filling, no compression and partial Colour flow in Axillary, Brachial veins. Interpretation Summary Positive for left upper extremity DVT. Incidental findings of large, complex soft tissue mass, as noted. : MARTHA ZEPEDA > Mann Sawant
--- NOTE | 2018-11-24 00:19 | RADIOLOGY REPORT (SQ) ---
EXAM DESCRIPTION: CT CHEST ANGIOGRAPHY WITHOUT THEN WITH IV CONTRAST, CT ABDOMEN PELVIS WITHOUT THEN WITH IV CONTRAST COMPLETED DATE/TME: 11/23/2018 22:28 CLINICAL HISTORY: 68 years, Male, tachycardia, short of breath, LUE swelling Comparison: None TECHNIQUE: Contiguous axial CTA images of the chest, and CT abdomen and pelvis were obtained. Maximum intensity projection images of the chest were obtained. Sagittal and coronal reformats were reviewed. This exam was performed according to our departmental dose-optimization program, which includes automated exposure control, adjustment of the mA and/or kV according to patient size and/or use of iterative reconstruction technique. FINDINGS: Chest: Lungs: Small bullae are present in the apices most pronounced on the right. Thin secretions are seen in the dependent portion of the trachea and central bronchi. The patient has had a laryngectomy. Thoracic aorta: Unremarkable. Heart: Unremarkable except for coronary artery calcifications. Mediastinum: Prominent prevascular lymph nodes. Enlarged left axillary lymph nodes. Bones: Unremarkable. Soft tissues: Heterogeneous soft tissue mass measuring at least 7.3 x 5.6 x 6.8 cm with multiple enhancing septa in the left supraclavicular fossa extending inferiorly between the clavicle and first rib and medially towards the trachea and left common carotid artery. The mass abuts the left clavian artery and vein. Abdomen and pelvis: Liver: 1 cm hypodensity in the inferior right hepatic lobe too small to characterize by CT criteria. Liver is otherwise normal in appearance. Gallbladder:Unremarkable. No gallstones. No gallbladder wall thickening or pericholecystic fluid. Spleen:Unremarkable Pancreas: Pancreas is unremarkable. Adrenal glands:Within normal limits. Kidneys/ureters:Within normal limits Stomach/small bowel/colon: Stomach is unremarkable. Multiple dilated fluid-filled loops of small bowel throughout the abdomen measuring up to 3.3 cm in diameter. There are scattered air-fluid levels. No discrete transition point. Colonic diverticulosis without evidence of diverticulitis. Appendix: No evidence of appendicitis. Peritoneum: No free fluid. Vascular structures: Diffuse atherosclerotic calcifications. Lymph nodes: No abnormal lymph nodes. Bladder:Unremarkable. Pelvic organs: No acute abnormality Bones: No acute osseous abnormality. Soft tissues: Small fat containing bilateral inguinal hernia. . IMPRESSION: Malignant appearing mass in the left supraclavicular fossa extending inferiorly abutting the left common carotid artery and left subclavian artery and veins. The mass almost certainly is causing extrinsic compression of the subclavian vein to causes left upper extremity swelling. Bulky left axillary adenopathy. No PE.
[2018-11-24] MEDS ORDERED: HYDROMORPHONE HCL INJ/PF 2 MG/ML AMPULE IV ONE (01:53)
[2018-11-24 02:17] LABS: APPEARANCE,URINE SLIGHTLY-CLOUDY; BILIRUBIN,URINE NEGATIVE (NEGATIVE); COLOR,URINE YELLOW; GLUCOSE, URINE NEGATIVE (NEGATIVE); KETONES,URINE 20 mg/dL (NEGATIVE); LEUKOCYTE ESTERASE,URINE NEGATIVE (NEGATIVE); NITRITE,URINE NEGATIVE (NEGATIVE); PROTEIN,URINE 30 mg/dL (NEGATIVE); URINE SPECIFIC GRAVITY > 1.060; UROBILINOGEN,URINE NEGATIVE mg/dL (<2.0)
[2018-11-24] MEDS ORDERED: NORMAL SALINE 500 ML IV ONE ×2 (02:29→05:56)
[2018-11-24] MEDS ORDERED: MORPHINE SULFATE 10 MG/ML INJ IV ONE (05:56)
[2018-11-24 10:08] VITALS: BP 144/86
--- NOTE | 2018-11-24 20:20 | ER Document Report ---
Doctor's Note Notes: 11/24/18 20:19 Transport arrived at 10:15 to receive patient. Patient was stable for transfer. Vital signs were stable at the time.
== END 2018-11-24 10:20 | disposition short-term general hospital (02) ==
LOC: ER 21:00
DX: R22.2 Localized swelling, mass and lump, trunk (principal); R22.1 Localized swelling, mass and lump, neck; M79.89 Other specified soft tissue disorders; R10.84 Generalized abdominal pain; M79.602 Pain in left arm; R06.02 Shortness of breath; R79.1 Abnormal coagulation profile; R00.0 Tachycardia, unspecified; K40.90 Unilateral inguinal hernia, without obstruction or gangrene, not specified as recurrent; I10 Essential (primary) hypertension; Z85.819 Personal history of malignant neoplasm of unspecified site of lip, oral cavity, and pharynx; Z85.21 Personal history of malignant neoplasm of larynx; Z92.21 Personal history of antineoplastic chemotherapy; Z92.3 Personal history of irradiation; Z90.89 Acquired absence of other organs; Z79.899 Other long term (current) drug therapy; Z79.891 Long term (current) use of opiate analgesic
CPT/HCPCS: 93005; 96376; 99285; 96361; 96374; 96375; 36415; 83605; 85025; 85610; 85730; 80053; 81001; 84484; 93971 ×2; 71045; 71275; 74174; 93010; J3010; J2270; J1170 ×2; J7040